=== PATIENT | female | born 1995 | race Caucasian/White ===

== ENCOUNTER 2023-10-27 14:15 | Inpatient (IN) | payer OTHER, SELFPAY ==
[2023-10-27] VITALS (21 sets, daily range): BP systolic 97–143; BP diastolic 55–82; PULSE 81–122; TEMP 36.8–37.3; O2SAT 97–100; BMI 38.2
--- OUTSIDE RECORDS SUMMARY | 2023-10-27 13:47 | XMS RPT_ITS | CCD ---
Author Name Unknown Address [address] [place] [address] Organization [facility] Care Team Providers Care Career Development Director Name Role Phone Adelaide Mcdaniel MD Primary Care Provider [phone] DISTFILIBERTO, ADELAIDE Primary Care Unavailable JAX CANDELARIA Referring Unavailable DISTEL, ADELAIDE Primary Care Unavailable FUNJAX Chavez Referring Unavailable Distel Adelaide MCARTHUR Primary Care Provider DISTFILIBERTO, ADELAIDE Primary Care Unavailable JAX CANDELARIA Attending Unavailable BARI, JAX Cabrera Referring Unavailable DOMINIQUE JOHNSON Attending Unavailable DISTEL, ADELAIDE Primary Care Unavailable FUNK, JAX Cabrera Referring Unavailable DISTEL, ADELAIDE Primary Care Unavailable JAX CANDELARIA Attending Unavailable ARCADIO OWEN Attending Unavailable DISTEL, ADELAIDE Primary Care Unavailable JESSY RAMOS Referring Unavailable DISTEL, ADELAIDE Primary Care Unavailable LINA CAMPOS Attending Unavailable DISTEL, ADELAIDE Primary Care Unavailable RESHMA ODONNELL Attending Unavail able DISTEL, ADELAIDE Primary Care Unavailable FUNJAX Chavez Attending Unavailable DISTEL, ADELAIDE Primary Care Unavailable FUNScott, JAX Cabrera Attending Unavailable DISTEL, ADELAIDE Primary Care Unavailable FUNScott, JAX R Referring Unavailable FUNJAX Chavez Attending Unavailable DISTEL, ADELAIDE Primary Care Unavailable FUNScott, JAX R Referring Unavailable DISTEL, ADELAIDE Primary Care Unavailable FUNK, JAX R Referring Unavailable FUNK, JAX Cabrera Attending Unavailable DISTEL, ADELAIDE Primary Care Unavailable Medications Completed/Discontinued Medications Medication Drug Class(es) Dates Sig (Normalized) Sig (Original) dicyclomine hydrochloride 20 mg oral tablet (6 sources) Anticholinergic Start: 11-07-2021 take 1 tablet by mouth at bedtime dicyclomine (BENTYL) 20 mg tablet Indications: Irritable bowel syndrome with diarrhea TAKE 1 TABLET BY MOUTH BEFORE MEAL(S) AND AT BEDTIME 30 tablet 0 11/07/2021 Active Problems Active Problems Problem Classification Problem Date Documented Da te Episodic/Chronic Abdominal pain (3 sources) Finding of sensation of abdomen; Translations: [Unspecified abdominal pain] Episodic Diabetes or abnormal glucose tolerance complicating ; childbirth; or the puerperium (2 sources) with abnormal glucose tolerance test; Translations: [Abnormal glucose complicating ] Onset: 08-17-2023 08-13-2023 Episodic Headache; including migraine (15 sources) Migraine without aura, not refractory ; Translations: [Chronic migraine without aura, not intractable, without status migrainosus] Onset: 05-20-2021 05-20-2021 Chronic Immunizations and screening for infectious disease (1 source) Vaccination needed; Translations: [Encounter for immunization] 09-24-2023 Episodic Mood disorders (15 sources) Moderate major depression, single episode; Translations: [Major depressive disorder, single episode, moderate] Onset: 01-03-2021 01-03-2021 Chronic Other complications of (1 source) Maternal obesity complicating , childbirth and the puerperium, antepartum; Translations: [Obesity complicating , third trimester] 06-25-2023 Chronic Other complications of (1 source) Obesity; Translations: [Obesity complicating , unspecified trimester] 09-24-2023 Chronic Other complications of (1 source) Uterine size-date discrepancy, third trimester; Translations: [Uterine size-date discrepancy, third trimester] Onset: 10-18-2023 Episodic Other gastrointestinal disorders (3 sources) Diarrhea; Translations: [Diarrhea, unspecified] Episodic Other screening for suspected conditions (not mental disorders or infectious disease) (3 sources) care status; Translations: [Encounter for screening, unspecified] 05-02-2023 Episodic Residual codes; unclassified (2 sources) Gestation period, 12 weeks; Translations: [12 weeks gestation of ] 05-03-2023 Episodic Residual codes; unclassified (1 source) Gestation period, 16 weeks; Translations: [16 weeks gestation of ] 06-04-2023 Episodic Residual codes; unclassified (1 source) Gestation period, 19 weeks; Translations: [19 weeks gestation of ] 06-25-2023 Episodic Residual codes; unclassified (1 source) Gestation period, 20 weeks; Translations: [20 weeks gestation of ] 07-02-2023 Episodic Residual codes; unclassified (1 source) Gestation period, 28 weeks; Translations: [28 weeks gestation of ] 08-27-2023 Episodic Residual codes; unclassified (1 source) Gestation period, 32 weeks; Translations: [32 weeks gestation of ] 09-24-2023 Episodic Past or Other Problems Problem Classification Problem Date Documented Da te Episodic/Chronic Other complications of (9 sources) Rubella non-immune; Translations: [Supervision of other high risk pregnancies, unspecified trimester] Onset: 04-04-2023 04-04-2023 Episodic Other and delivery including normal (16 sources) Normal ; Translations: [Encounter for supervision of normal first , unspecified trimester] Onset: 04-04-2023 04-04-2023 Episodic Residual codes; unclassified (16 sources) Family history of polyp of colon; Translations: [Family history of colonic polyps] Onset: 01-03-2021 01-03-2021 Episodic Results Test Name Value Interpretation Reference Range Facil ity Vital Signs Date Time Vital Sign Value Performing Clinician Melissa peraza 09-24-2023 14:09-0500 Body weight 97.52 kg Reshma Miranda MD Work Phone: [facility] 09-24-2023 14:09-0500 Diastolic blood pressure 74 mm[Hg] Reshma Miranda MD Work Phone: [facility] 09-24-2023 14:09-0500 Systolic blood pressure 120 mm[Hg] Reshma Miranda MD Work Phone: [facility] 08-27-2023 07:57-0500 Body weight 95.3 kg Jax Candelaria MD Work Phone: [facility] 08-27-2023 07:57-0500 Diastolic blood pressure 68 mm[Hg] Jax Candelaria MD Work Phone: [facility] 08-27-2023 07:57-0500 Systolic blood pressure 130 mm[Hg] Jax Candelaria MD Work Phone: [facility] 07-02-2023 13:55-0400 Body height 162.6 cm Jax Candelaria MD Work Phone: [facility] 07-02-2023 13:55-0400 Body weight 89.81 kg Jax Candelaria MD Work Phone: [facility] 07-02-2023 13:55-0400 Diastolic blood pressure 62 mm[Hg] Jax Candelaria MD Work Phone: [facility] 07-02-2023 13:55-0400 Systolic blood pressure 114 mm[Hg] Jax Candelaria MD Work Phone: [facility] 06-04-2023 16:29-0400 Body weight 87.09 kg Jax Candelaria MD Work Phone: [facility] 06-04-2023 16:29-0400 Diastolic blood pressure 82 mm[Hg] Jax Candelaria MD Work Phone: [facility] 06-04-2023 16:29-0400 Systolic blood pressure 120 mm[Hg] Jax Candelaria MD Work Phone: [facility] 05-07-2023 16:28-0400 Body weight 85.28 kg Jax Candelaria MD Work Phone: [facility] 05-07-2023 16:28-0400 Diastolic blood pressure 80 mm[Hg] Jax Candelaria MD Work Phone: [facility] 05-07-2023 16:28-0400 Systolic blood pressure 114 mm[Hg] Jax Candelaria MD Work Phone: [facility] 05-02-2023 09:52-0400 Body weight 85.73 kg Dominique Johnson MD Work Phone: [facility] 07-21-2022 09:28-0400 Diastolic blood pressure 77 mm[Hg] Michael Lovell MD Work Phone: [facility] 07-21-2022 09:28-0400 Heart rate 56 /min Michael Lovell MD Work Phone: [facility] 07-21-2022 09:28-0400 Respiratory rate 17 /min Michael Lovell MD Work Phone: [facility] 07-21-2022 09:28-0400 SaO2% (BldA) [Mass fraction] 99 % Michael Lovell MD Work Phone: [facility] 07-21-2022 09:28-0400 Systolic blood pressure 117 mm[Hg] Michael Lovell MD Work Phone: [facility] 07-21-2022 08:56-0400 Body temperature 96.8 [degF] Michael Lovell MD Work Phone: [facility] 07-21-2022 07:10-0400 Body height 165.1 cm Michael Lovell MD Work Phone: [facility] 07-21-2022 07:10-0400 Body weight 85.28 kg Michael Lovell MD Work Phone: [facility] 02-09-2022 07:18-0400 Body height 165.1 cm Michael Lovell MD Work Phone: [facility] 02-09-2022 07:18-0400 Body temperature 97.3 [degF] Michael Lovell MD Work Phone: [facility] 02-09-2022 07:18-0400 Body weight 85.28 kg Michael Lovell MD Work Phone: [facility] 02-09-2022 07:18-0400 Diastolic blood pressure 84 mm[Hg] Michael Lovell MD Work Phone: [facility] 02-09-2022 07:18-0400 Heart rate 106 /min Michael Lovell MD Work Phone: [facility] 02-09-2022 07:18-0400 SaO2% (BldA) [Mass fraction] 95 % Michael Lovell MD Work Phone: [facility] 02-09-2022 07:18-0400 Systolic blood pressure 146 mm[Hg] Michael Lovell MD Work Phone: [facility] Encounters Encounter Date Encounter Type Care Provider Facility Start: 10-19-2023 End: 10-19-2023 ambulatory ARCADIO OWEN Facility:[facility] Start: 10-18-2023 End: 10-18-2023 ambulatory JESSY RAMOS Facility:[facility] Start: 10-12-2023 End: 10-12-2023 ambulatory LINA CAMPOS Facility:[facility] Start: 09-24-2023 End: 09-24-2023 ambulatory RESHMA MIRANDA Facility:[facility] Start: 09-24-2023 End: 09-24-2023 Patient encounter procedure Reshma Miranda MD Work Phone: OB/Gynecology Procedures Date Procedure Procedure Detail Performing Clinician Start: 09-24-2023 RSV VACCINE, BIVALEN T (ABRYSVO) Reshma Miranda MD Work Phone: Start: 09-24-2023 URINE OB DIP B/O Reshma Miranda MD Work Phone: Start: 08-27-2023 URINE OB DIP B/O Kate Candelaria MD Work Phone: Start: 07-02-2023 URINE OB DIP B/O Kate Candelaria MD Work Phone: Start: 06-18-2023 Us preg uterus after 1st trimest 1/ gestation Jax Candelaria MD Work Phone: Start: 05-07-2023 URINE OB DIP B/O Kate Candelaria MD Work Phone: Start: 05-02-2023 Us nuchal translucency 1st gestation Jax Candelaria MD Work Phone: Start: 04-03-2023 Antibody screen ADELAIDE D ISTEL Plan of Treatment Date Care Activity Detail Author Start: 09-24-2033 Urine microalbumin profile DTaP,Tdap,Td Vaccine (2 - Td or Tdap) [facility] Start: 02-18-2026 PAP TESTING PAP TESTING [facility] Start: 02-19-2024 PAP TESTING PAP TESTING [facility] Start: 08-13-2023 End: 11-12-2023 GEST GLUC PAOLO, 3-HR, 100 GM, FASTING GEST GLUC PAOLO, 3-HR, 100 GM, FASTING Lab Routine Abnormal glucose tolerance test (GTT) during , antepartum Expected: 08/13/2023, Expires: 11/12/2023 [facility] Work Phone: Immunizations Immunization Date Immunization Notes Care Provider Alexis burgos 09-24-2023 respiratory syncytia l virus (RSV) vaccine, bivalent (ABRYSVO) Reshma Miranda MD Work Phone: [facility] 09-24-2023 tetanus toxoid, redu radha diphtheria toxoid, and acellular pertussis vaccine, adsorbed Reshma Miranda MD Work Phone: [facility] 09-11-2020 influenza virus vacc ine, unspecified formulation Jax Candelaria MD Work Phone: [facility] Payers Date Payer Category Payer Private Health Insurance [employer] OAP [id number] 2020-Present [phone] [address] [place] [address] Open Access [id number] 2020 Private Health Insurance [employer] OAP [id number] 2020-Present [phone] [address] [place] [address] Open Access [id number] 2020 Private Health Insurance [id number] Social History Date Type Detail Facility Start: 01-03-2021 End: 06-04-2023 Tobacco smoking status NHIS Never smoked tobacco [facility] Start: 01-03-2021 End: 06-04-2023 Tobacco use and exposure Smokeless tobacco non-user [facility] Start: 02-09-2022 End: 08-27-2023 Alcohol intake Current drinker of alcohol (finding) [facility] Start: 02-09-2022 End: 04-03-2023 Alcohol intake [facility] Start: 01-01-2021 History SDOH Alcohol Frequency 3 [facility] Start: 01-01-2021 History SDOH Alcohol Std Drinks 1 [facility] Start: 01-01-2021 History SDOH Social Connections Phone 5 [facility] Start: 01-01-2021 History SDOH Social Connections Get Together 2 [facility] Start: 01-01-2021 History SDOH Social Connections Living 8 [facility] Start: 01-01-2021 Education 17 [facility] Start: 1995 Sex Assigned At Female C [facility] Start: 01-30-2022 End: 08-18-2022 Exposure to SARS-CoV-2 (event) Not sure [facility] Start: 02-20-2023 [facility] Start: 01-01-2021 End: 04-03-2023 Social connection and isolation panel [facility] Do you belong to any clubs or organizations such as muslim groups, unions, fraternal or athletic groups, or school groups? No [facility] Are you now , , , , never or living with a partner? Living with partner [facility] How often to you hav e a drink containing alcohol? 2-4 times a month [facility] How many standard dr inks containing alcohol do you have on a typical day? 1 or 2 [facility] How often do you hav e 6 or more drinks on 1 occasion? Never [facility] How hard is it for y ou to pay for the very basics like food, housing, medical care, and heating Not hard at all [facility] Do you feel stress - tense, restless, nervous, or anxious, or unable to sleep at night because your mind is troubled all the time - these days [OSQ] Only a little [facility] (I/We) worried alessandro er (my/our) food would run out before (I/we) got money to buy more. Never true [facility] Start: 12-31-2020 Gender identity Identifies as female gender (finding) [facility] Start: 12-31-2020 Sexual orientation Heterosexual (fabio ro) [facility] NEGATED: Highlighted rowStart: TATUMF History of tobacco use Passive smoker [facility] Goals Date Patient Goal Desired Activity /State Personal health goal Clinical Notes 02-09-2022 to 09-24-2023 Kanchan Ramesh Ma - 09/24/2023 2:30 PM ESTPrenatal Quick Notes - Reshma Odonnell MD - 09/24/2023 2:26 PM ESTPatient InstructionsIsabela Almonte Ma - 08/27/2023 7:55 AM ESTPatient Instructions Note Date & Type Note Facility 09-24-2023 Note HNO ID: [id number] Author: Kanchan Ramesh Ma Service: ? Author Type: ? Type: Progress Notes Filed: 09/24/2023 2:42 PM Note Text: Patient identified by name and date of . Veronica Harrison presents today for a vaccination of Tdap. Patient denies an allergy to latex: yes Patient denies a severe (life-threatening) allergy to a previous dose of Tdap, DTP, DTaP, DT or Td vaccine. Yes Patient denies history of epilepsy or neurological problems: Yes Patient is afebrile and denies being moderately or severely ill: Yes Patient denies history of Guillain-[place] Syndrome (a severe paralytic illness): Yes Tdap Adacel injection was given without incident. See immunizations for details of immunizations administered today. VIS sheet provided: Yes Provider Dr Miranda was present in office at time of injection. Kanchan Ramesh Ma [facility] 09-24-2023 History of Present illness Narrative Patient identified by name and date of . Veronica Harrison presents today for a vaccination of Tdap. Patient denies an allergy to latex: yes Patient denies a severe (life-threatening) allergy to a previous dose of Tdap, DTP, DTaP, DT or Td vaccine. Yes Patient denies history of epilepsy or neurological problems: Yes Patient is afebrile and denies being moderately or severely ill: Yes Patient denies history of Guillain-[place] Syndrome (a severe paralytic illness): Yes Tdap Adacel injection was given without incident. See immunizations for details of immunizations administered today. VIS sheet provided: Yes Provider Dr Miranda was present in office at time of injection. Kanchan Ramesh Ma documented in this encounter [facility] 09-24-2023 Miscellaneous Notes DM- transferring from [place] to [place]- wants to deliver at [facility]. Pt doing well today. Denies Vaginal Bleeding, Leaking fluid, or contractions. Pt reports good movement. Failed 1hr passed 3hr hr. Never started ASA. RSV and tdap vaccine today. RTO 2 wk. Kick counts reviewed. Reshma Eason MD documented in this encounter [facility] 09-24-2023 Instructions Wendy Lee Ma - 09/24/2023 2:08 PM EST SEQUENTIAL SCREENINGS The [facility] offers sequential screenings for women who are interested in screenings for chromosomal abnormalities and certain defects during a . The sequential screen combines ultrasound and blood tests to determine the risk of chromosomal abnormalities, including Down's Syndrome (Trisomy 21) and Trisomy 18, as well as open neural tube defects including spina bifida. Ultrasound examination is performed between 11 weeks and 13 weeks gestational age. Blood tests are drawn after the ultrasound and again later in the between 15 and 21 weeks gestational age. Please let your physician know if you are interested in this testing. It will require an appointment with our retail pharmacy technician. This is not an ultrasound performed by a physician in our office during a routine visit. SIGNS AND SYMPTOMS OF LABOR 1. Contractions every 10 minutes or more often 2. Clear, pink, or brownish fluid (water) leaking from vagina 3. Feeling that baby is pushing down, pressure 4. Low, dull backache 5. Cramps that feel like a period 6. Cramps with or without diarrhea If you notice any of the above symptoms, contact our office at [phone] and ask to speak with a nurse. After hours, you can call doctors registry at [phone] OR call [facility] at [phone] and ask to have the doctor salesperson flowers paged. If you consider this an emergency, dial 9--4 or go to your nearest emergency department. NEED HELP? Are you dealing with a violent or abusive relationship? Are you a victim of rape or sexual assult? Call [facility] ([place]) 24 hour Crisis Hotline: 674.119.5598 or 088-055-4624. MANUAL Your Guide to a Healthy manual is now on-line. Visit [email or web address] ncyGuide to download your free copy documented in this encounter [facility] 08-27-2023 Miscellaneous Notes W/O complaint, No LOF, No Ctx's, No Vag bleed. Harlan Candelaria MD documented in this encounter [facility] 08-27-2023 Nurse Note Movement? Active baby Vaginal Bleeding: NO Vaginal fluid leakage of fluid: NO Contractions: no contractions documented in this encounter [facility] 08-13-2023 Miscellaneous Notes Patient called and aware of 3 hour. Phone number given Lubna Khoury LPN Please call patient. Recent 1 hour returns at 137, order for 3-hour OGTT is now placed. documented in this encounter [facility] 07-02-2023 Miscellaneous Notes Next - 1 hour, W/O complaint, No LOF, No Ctx's, No Vag bleed. Harlan Candelaria MD documented in this encounter [facility] 07-02-2023 Nurse Note Movement? No movement Vaginal Bleeding: NO Vaginal fluid leakage of fluid: NO Contractions: no contractions documented in this encounter [facility] 06-25-2023 Note HNO ID: [id number] Author: Ghazala Cullen MD Service: ? Author Type: Physician Type: Progress Notes Filed: 06/25/2023 8:12 AM Note Text: Patient here for routine anatomy scan. See ultrasound report for details. OBGYN [facility] 06-25-2023 History of Present illness Narrative Patient here for routine anatomy scan. See ultrasound report for details. OBGYN [facility] documented in this encounter [facility] 06-04-2023 Miscellaneous Notes Declines NIPT, W/O complaint, No LOF, No Ctx's, No Vag bleed. Harlan Candelaria MD documented in this encounter [facility] 06-04-2023 Nurse Note Movement? Too early Vaginal Bleeding: NO Vaginal fluid leakage of fluid: NO Contractions: no contractions documented in this encounter [facility] 05-07-2023 Miscellaneous Notes W/O complaint, No LOF, No Ctx's, No Vag bleed. Harlan Candelaria MD documented in this encounter [facility] 05-07-2023 Nurse Note Movement? Too early Vaginal Bleeding: NO Vaginal fluid leakage of fluid: NO Contractions: no contractions documented in this encounter [facility] 05-03-2023 Note HNO ID: [id number] Author: Dominique Johnson MD Service: ? Author Type: Physician Type: Progress Notes Filed: 05/03/2023 1:29 PM Note Text: Patient here for First Trimester Screening. See ultrasound report for details. Options for genetic screening and diagnosis discussed with the patient. Patient opts for fNIPT. Limitations of screening tests discussed with the patient. Dominique Johnson MD [facility] 05-03-2023 History of Present illness Narrative Patient here for First Trimester Screening. See ultrasound report for details. Options for genetic screening and diagnosis discussed with the patient. Patient opts for fNIPT. Limitations of screening tests discussed with the patient. Dominique Johnson MD documented in this encounter [facility] 04-03-2023 Note HNO ID: [id number] Author: Jax Candelaria MD Service: ? Author Type: Physician Type: Progress Notes Filed: 04/03/2023 1:47 PM Note Text: INITIAL OB ASSESSMENT OB Provider: Jax Candelaria MD HPI:Veronica Harrison a 27 year old White female here to establish Obstetrical Care. Patient's last menstrual period was 02/06/2023 (exact date). from OB Dating Form. 8 0/7 weeks with an EDC of Estimated Date of Delivery: 11/13/23 Complaints: None OB History T0 L0 SAB0 IAB0 Ectopic0 Multiple0 Live Births0 PAST MEDICAL HISTORY Diagnosis Date Depression Generalized anxiety disorder Intractable migraine without aura and without status migrainosus PAST SURGICAL HISTORY Procedure Laterality Date COLONOSCOPY SCREENING 07/21/2022 Dr. Nas EXTRACTION ERUPTED TOOTH/EXR KNEE SURGERY HX Right 2016 ACL reconstruction Current Outpatient Medications on File Prior to Visit Medication Sig vit no.124/iron/folic ( VITAMIN ORAL) Take by mouth. No current facility-administered medications on file prior to visit. ALLERGIES No Known Allergies 04/03/23 0955 BP: 128/80 Weight: 189 lb (85.7 kg) GENERAL: pleasant female in no apparent distress DERMATOLOGY: Normal, without lesions, non-icteric, and non-hirsute NECK: Supple, full range of motion, no adenopathy, and thyroid normal CHEST: Clear to auscultation, Normal inspiratory effort, Regular rate and rhythm, and No murmurs, clicks, rubs or gallops BREAST: soft, non-tender, symmetric, no dominant mass, normal nipple-areolar complex, no lymphadenopathy, and no nipple discharge ABDOMEN: soft, non-tender, no masses, and no hepatosplenomegaly NEURO: alert and oriented x3,exam grossly non-focal PELVIS: External genitalia normal without lesions. , Perineal body intact. , No vaginal or cervical lesions. , Cervix closed. , Uterus 8 week size. , No adnexal masses or tenderness. ASSESSMENT: 27 year old at 8 0/7 weeks PLAN: Routine care. Follow up in 4 weeks or sooner prn. Jax Candelaria MD [facility] 08-18-2022 History of Present illness Narrative FOLLOW UP VISIT - ENDOSCOPY NAME: Veronica Harrison [facility] NO.: [id number] DATE OF SERVICE: 08/18/2022 : 1995 REFERRING PHYSICIAN: Adelaide Mcdaniel MD Veronica is a patient I am following for diarrhea. The patient is a 26 year old female referred for endoscopy. Veronica notes the following GI complaints: Veronica notes abdominal pain. The pain occurs in the following locations: Relatively diffuse throughout her abdomen. She notes that this pain is episodic and paroxysmal. She denies that it radiates to her back shoulders or other areas. She has had evaluation and has no true gallbladder symptoms. She denies that any specific foods tend to set this off. Sometimes this happens after eating other times not during eating. It does seem to be more related to stress. She has been told in the past that she has irritable bowel syndrome. She was given Bentyl. This does not improve her symptoms.. Veronica notes occasional diarrhea. Veronica notes occasional constipation. Veronica notes these alternating bowel habits. Veronica denies melena. Veronica denies bright red blood per rectum. Veronica denies hemorrhoids. The patient does note reflux. She denies dysphagia. She notes no other upper GI complaints. She notes that her grandfather had colon cancer and both parents have a history of colon polyps Veronica has not undergone prior endoscopy. Given a likely diagnosis of the bowel syndrome the patient would like to have endoscopy form to assure there is not some other etiology for her symptoms. I performed colonoscopy on July 21, 2022. The patient was found to have: Impression: - The examined portion of the ileum was normal. Biopsied. - The entire examined colon is normal. Biopsied. - One diminutive polyp in the rectum, removed with a cold biopsy forceps. Resected and retrieved. - The distal rectum and anal verge are normal on retroflexion view. . Pathology demonstrated: FINAL DIAGNOSIS A. Terminal ileum, biopsy: - Small bowel mucosa with no diagnostic abnormalities. B. Colon, ascending, biopsy: - Colonic mucosa with no diagnostic abnormalities. C. Colon, descending, biopsy: - Colonic mucosa with no diagnostic abnormalities. D. Colon, rectal polyp, biopsy: - Hyperplastic polyp. The patient notes continued complaints of diarrhea alternating with constipation since the procedure. The patient feels these are more likely to occur during periods of stress. VITALS: Last menstrual period 07/19/2022. On examination, the abdomen is benign. Assessment IMPRESSION: Unremarkable colonoscopy hyperplastic polyp PLAN: If the patient notes any problems or changes in bowel function, the patient should contact me immediately. Otherwise I recommend follow up endoscopy as needed. You were found to have a hyperplastic colon polyp. I recommend you undergo repeat endoscopy as needed. If you note bleeding, change in bowel habits, or other suspicious colon related symptoms before that time, those symptoms should be evaluated as necessary. I would recommend fiber supplements see if this mitigates her constipation diarrhea episodes and/or a higher fiber diet. If she is has consistent issues with diarrhea abdominal cramping with anxiety she should see her primary care physician to consider addressing that issue. If you have any difficulties or concerns, you should contact our office immediately. Diagnoses: (R19.7) Diarrhea, unspecified type (primary encounter diagnosis) (R10.9) Cramp, abdominal Return to Clinic: The patient is instructed to follow-up with me as needed. Michael Lovell MD documented in this encounter [facility] 08-07-2022 Miscellaneous Notes Per the request of Dr. Lovell called patient to set up follow up appt after her colonoscopy 07/21 documented in this encounter [facility] 07-21-2022 Nurse Note Other: at bedside talking with pt, pt passing flatus. VSS documented in this encounter [facility] 07-21-2022 History and physical note UPDATED PROCEDURAL SEDATION HISTORY AND PHYSICAL EXAMINATION SERVICE DATE: 07/21/2022 SERVICE TIME: 8:16 AM PHYSICAL EXAM MUST BE COMPLETED ON ADMISSION PROCEDURE: Procedure Indications: The History and Physical (completed in the past 30 days) has been reviewed and the patient has been examined. The contents accurately reflect the patient's condition with the following additions or revisions since the H&P was completed. ASA Class: ASA Class:: Patient with mild systemic disease Examination indicates no changes. AIRWAY: Airway Visualization of Uvula: Yes Mouth opening greater than 2 fingerbreadths: Yes Neck Full Range of Motion: Yes LUNGS: Lungs clear to auscultation CARDIAC: Regular rhythm,Regular rate Provisional Diagnosis/Treatment Plan: IBS, diarrhea, family history of colon polyps - colonoscopy (insurance refused to cover EGD) SEDATION GOAL: Moderate This H&P can be found in the attached. SIGNATURE: Michael Lovell MD PATIENT NAME: Veronica Harrison DATE: July 21, 2022 TIME: 8:16 AM Source Note - Michael Lovell MD - 07/21/2022 8:20 AM EDT Images from the original note were not included. HISTORY AND PHYSICAL Veronica Harrison 1995 REFERRING PHYSICIAN: Self CHIEF COMPLAINT: Consult (IBS with Diarrhea) HPI: The patient is a 26 year old female referred for endoscopy. Veronica notes the following GI complaints: Veronica notes abdominal pain. The pain occurs in the following locations: Relatively diffuse throughout her abdomen. She notes that this pain is episodic and paroxysmal. She denies that it radiates to her back shoulders or other areas. She has had evaluation and has no true gallbladder symptoms. She denies that any specific foods tend to set this off. Sometimes this happens after eating other times not during eating. It does seem to be more related to stress. She has been told in the past that she has irritable bowel syndrome. She was given Bentyl. This does not improve her symptoms.. Veronica notes occasional diarrhea. Veronica notes occasional constipation. Veronica notes these alternating bowel habits. Veronica denies melena. Veronica denies bright red blood per rectum. Veronica denies hemorrhoids. The patient does note reflux. She denies dysphagia. She notes no other upper GI complaints. She notes that her grandfather had colon cancer and both parents have a history of colon polyps Veronica has not undergone prior endoscopy. Given a likely diagnosis of the bowel syndrome the patient would like to have endoscopy form to assure there is not some other etiology for her symptoms. The patient is being seen by me today at the request of Dr. Adelaide Mcdaniel MD for my opinion and advice regarding abdominal cramping, alternating diarrhea and constipation. PAST MEDICAL HISTORY PAST MEDICAL HISTORY Diagnosis Date Depression Generalized anxiety disorder Intractable migraine without aura and without status migrainosus PAST SURGICAL HISTORY PAST SURGICAL HISTORY Procedure Laterality Date EXTRACTION ERUPTED TOOTH/EXR KNEE SURGERY HX Right 2016 ACL reconstruction CURRENT MEDICATIONS Current Outpatient Medications Medication Sig peg 3350-Electrolytes (GOLYTELY) 236-22.74-6.74 -5.86 gram suspension Refer to printed prep instructions from your provider. dicyclomine (BENTYL) 20 mg tablet TAKE 1 TABLET BY MOUTH BEFORE MEAL(S) AND AT BEDTIME sertraline (ZOLOFT) 50 mg tablet Take 1 tablet by mouth once daily. No current facility-administered medications for this visit. ALLERGIES: Patient has no known allergies. PERSONAL HISTORY: SOCIAL HISTORY Social History Tobacco Use Smoking status: Never Smoker Smokeless tobacco: Never Used Substance Use Topics Alcohol use: Yes Alcohol/week: 1.0 standard drink Types: 1 Cans of Beer (12oz) per week Drug use: Never FAMILY HISTORY: FAMILY HISTORY FAMILY HISTORY Problem Relation Age of Onset Colon Polyps Mother pre-cancer Colon Polyps Father pre-cancer Colon Cancer Other paternal great grandmother Diabetes Maternal Grandfather REVIEW OF SYMPTOMS: The review of systems data was entered by the nurse and reviewed by tn Nursing Notes: Jayla Ahn 02/09/2022 7:22 AM Signed REVIEW OF SYSTEMS: General: The patient denies fatigue, denies weight loss, NOTES weight gain, denies feeling hot, and denies feelings of cold. Eyes: The patient denies glaucoma, denies eye injury/surgery, does not wear glasses or contacts. Ear/Nose/Throat: The patient NOTES allergies, denies hayfever, denies ear infections, and denies bloody noses. Cardiovascular: The patient denies chest pain, denies heart disease, denies high blood pressure,denies cardiac stent, denies prior heart attack, denies irregular heart beat, denies high cholesterol, denies poor circulation, denies heart failure, other cardiac issues, denies claudication, denies cold feet, denies peripheral arterial stent. Respiratory: The patient denies tuberculosis, denies pneumonia, denies frequent cough, denies pulmonary embolism, denies shortness of breath, and denies coughing up blood. Gastrointestinal: The patient denies difficulty swallowing, NOTES acid reflux, denies ulcers, denies vomiting, denies jaundice/hepatitis, denies gallbladder problems, denies black or tarry stools, denies hemorrhoids, denies bleeding from rectum, denies diverticulitis, NOTES constipation, NOTES diarrhea, denies loss of stool control, and denies hernias. Kidney/Bladder: The patient denies kidney stones, denies urine infections, and denies bloody urine. Skin: The patient denies a history of skin cancer, denies bleeding/changing moles, and denies a history of skin rash. Neurologic: The patient denies a history of epilepsy/convulsions, NOTES headaches, denies head/spinal injuries, and denies stroke/TIA. Psychiatric: The patient denies psychiatric medications, NOTES depression, and denies voices, denies substance abuse. Endocrine: The patient denies thyroid disorders, denies diabetes, and denies hormonal problems. Hematologic: The patient denies a history of bruising, denies bleeding, and denies anemia, denies blood clots. Infections: The patient denies a history of measles and mumps, denies rheumatic fever, and denies sexually transmitted diseases. Musculoskeletal: The patient denies back pain/injury, denies back problems, denies sciatica, denies knee/foot trouble, denies arthritis, or denies gout. When was patient's last Mammogram screening? N/A Last Colonoscopy: None Jayla Ahn PHYSICAL EXAMINATION: General: The patient is 26 year old female, well nourished, well hydrated in no acute distress. The patient is oriented to time, place, and person. VITALS: Blood pressure 146/84, pulse 106, temperature 36.3 C (97.3 F), height 165.1 cm (5' 5 ), weight 85.3 kg (188 lb), last menstrual period 02/04/2021, SpO2 95 %. Body mass index is 31.28 kg/m . HEENT: Normal cephalic, ataumatic, pupils are equally round, sclera are anicteric, mucous membranes are moist, oropharynx is clear. Neck has no masses, asymmetry or lymphadenopathy. Thyroid is unremarkable. Respiratory: Clear to auscultation and percussion. Normal respiratory excursion and pattern. Cardiac: Examination is regular rate and rhythm. Abdominal exam: Soft, nontender, with no palpable masses. No hepatosplenomegaly. No palpable hernias. Rectal exam: exam deferred Extremities: no clubbing, cyanosis or edema. No adenopathy. Other: LABORATORY VALUES: As Noted RADIOLOGIC STUDIES: As Noted Assessment IMPRESSION: [place] cramping, alternating constipation diarrhea, likely IBS, rule out other etiologies PLAN: I plan to perform upper and lower endoscopy. We discussed the risks and benefits of the planned endoscopy. I have informed the patient that complications can occur including failure to complete the endoscopy and perforation. The patient had the opportunity to ask questions concerning the planned endoscopy. My staff has also explained the procedure to the patient in understandable terms and has given the patient printed material concerning the procedure. The patient freely consents to surgery. I plan to use golytely bowel preparation for endoscopy I plan for monitored anesthetic care. Diagnoses: (R19.7) Diarrhea, unspecified type (primary encounter diagnosis) (R10.9) Cramp, abdominal A letter was sent to Dr. Adelaide Mcdaniel MD indicating the above finding for this patient. Return to Clinic: The patient is instructed to follow-up with me after the testing has been completed. Michael Lovell MD Images from the original note were not included. HISTORY AND PHYSICAL Veronica Harrison 1995 REFERRING PHYSICIAN: Self CHIEF COMPLAINT: Consult (IBS with Diarrhea) HPI: The patient is a 26 year old female referred for endoscopy. Veronica notes the following GI complaints: Veronica notes abdominal pain. The pain occurs in the following locations: Relatively diffuse throughout her abdomen. She notes that this pain is episodic and paroxysmal. She denies that it radiates to her back shoulders or other areas. She has had evaluation and has no true gallbladder symptoms. She denies that any specific foods tend to set this off. Sometimes this happens after eating other times not during eating. It does seem to be more related to stress. She has been told in the past that she has irritable bowel syndrome. She was given Bentyl. This does not improve her symptoms.. Veronica notes occasional diarrhea. Veronica notes occasional constipation. Veronica notes these alternating bowel habits. Veronica denies melena. Veronica denies bright red blood per rectum. Veronica denies hemorrhoids. The patient does note reflux. She denies dysphagia. She notes no other upper GI complaints. She notes that her grandfather had colon cancer and both parents have a history of colon polyps Veronica has not undergone prior endoscopy. Given a likely diagnosis of the bowel syndrome the patient would like to have endoscopy form to assure there is not some other etiology for her symptoms. The patient is being seen by me today at the request of Dr. Adelaide Mcdaniel MD for my opinion and advice regarding abdominal cramping, alternating diarrhea and constipation. PAST MEDICAL HISTORY PAST MEDICAL HISTORY Diagnosis Date Depression Generalized anxiety disorder Intractable migraine without aura and without status migrainosus PAST SURGICAL HISTORY PAST SURGICAL HISTORY Procedure Laterality Date EXTRACTION ERUPTED TOOTH/EXR KNEE SURGERY HX Right 2016 ACL reconstruction CURRENT MEDICATIONS Current Outpatient Medications Medication Sig peg 3350-Electrolytes (GOLYTELY) 236-22.74-6.74 -5.86 gram suspension Refer to printed prep instructions from your provider. dicyclomine (BENTYL) 20 mg tablet TAKE 1 TABLET BY MOUTH BEFORE MEAL(S) AND AT BEDTIME sertraline (ZOLOFT) 50 mg tablet Take 1 tablet by mouth once daily. No current facility-administered medications for this visit. ALLERGIES: Patient has no known allergies. PERSONAL HISTORY: SOCIAL HISTORY Social History Tobacco Use Smoking status: Never Smoker Smokeless tobacco: Never Used Substance Use Topics Alcohol use: Yes Alcohol/week: 1.0 standard drink Types: 1 Cans of Beer (12oz) per week Drug use: Never FAMILY HISTORY: FAMILY HISTORY FAMILY HISTORY Problem Relation Age of Onset Colon Polyps Mother pre-cancer Colon Polyps Father pre-cancer Colon Cancer Other paternal great grandmother Diabetes Maternal Grandfather REVIEW OF SYMPTOMS: The review of systems data was entered by the nurse and reviewed by tn Nursing Notes: Jayla Ahn 02/09/2022 7:22 AM Signed REVIEW OF SYSTEMS: General: The patient denies fatigue, denies weight loss, NOTES weight gain, denies feeling hot, and denies feelings of cold. Eyes: The patient denies glaucoma, denies eye injury/surgery, does not wear glasses or contacts. Ear/Nose/Throat: The patient NOTES allergies, denies hayfever, denies ear infections, and denies bloody noses. Cardiovascular: The patient denies chest pain, denies heart disease, denies high blood pressure,denies cardiac stent, denies prior heart attack, denies irregular heart beat, denies high cholesterol, denies poor circulation, denies heart failure, other cardiac issues, denies claudication, denies cold feet, denies peripheral arterial stent. Respiratory: The patient denies tuberculosis, denies pneumonia, denies frequent cough, denies pulmonary embolism, denies shortness of breath, and denies coughing up blood. Gastrointestinal: The patient denies difficulty swallowing, NOTES acid reflux, denies ulcers, denies vomiting, denies jaundice/hepatitis, denies gallbladder problems, denies black or tarry stools, denies hemorrhoids, denies bleeding from rectum, denies diverticulitis, NOTES constipation, NOTES diarrhea, denies loss of stool control, and denies hernias. Kidney/Bladder: The patient denies kidney stones, denies urine infections, and denies bloody urine. Skin: The patient denies a history of skin cancer, denies bleeding/changing moles, and denies a history of skin rash. Neurologic: The patient denies a history of epilepsy/convulsions, NOTES headaches, denies head/spinal injuries, and denies stroke/TIA. Psychiatric: The patient denies psychiatric medications, NOTES depression, and denies voices, denies substance abuse. Endocrine: The patient denies thyroid disorders, denies diabetes, and denies hormonal problems. Hematologic: The patient denies a history of bruising, denies bleeding, and denies anemia, denies blood clots. Infections: The patient denies a history of measles and mumps, denies rheumatic fever, and denies sexually transmitted diseases. Musculoskeletal: The patient denies back pain/injury, denies back problems, denies sciatica, denies knee/foot trouble, denies arthritis, or denies gout. When was patient's last Mammogram screening? N/A Last Colonoscopy: None Jayla Ahn PHYSICAL EXAMINATION: General: The patient is 26 year old female, well nourished, well hydrated in no acute distress. The patient is oriented to time, place, and person. VITALS: Blood pressure 146/84, pulse 106, temperature 36.3 C (97.3 F), height 165.1 cm (5' 5 ), weight 85.3 kg (188 lb), last menstrual period 02/04/2021, SpO2 95 %. Body mass index is 31.28 kg/m . HEENT: Normal cephalic, ataumatic, pupils are equally round, sclera are anicteric, mucous membranes are moist, oropharynx is clear. Neck has no masses, asymmetry or lymphadenopathy. Thyroid is unremarkable. Respiratory: Clear to auscultation and percussion. Normal respiratory excursion and pattern. Cardiac: Examination is regular rate and rhythm. Abdominal exam: Soft, nontender, with no palpable masses. No hepatosplenomegaly. No palpable hernias. Rectal exam: exam deferred Extremities: no clubbing, cyanosis or edema. No adenopathy. Other: LABORATORY VALUES: As Noted RADIOLOGIC STUDIES: As Noted Assessment IMPRESSION: [place] cramping, alternating constipation diarrhea, likely IBS, rule out other etiologies PLAN: I plan to perform upper and lower endoscopy. We discussed the risks and benefits of the planned endoscopy. I have informed the patient that complications can occur including failure to complete the endoscopy and perforation. The patient had the opportunity to ask questions concerning the planned endoscopy. My staff has also explained the procedure to the patient in understandable terms and has given the patient printed material concerning the procedure. The patient freely consents to surgery. I plan to use golytely bowel preparation for endoscopy I plan for monitored anesthetic care. Diagnoses: (R19.7) Diarrhea, unspecified type (primary encounter diagnosis) (R10.9) Cramp, abdominal A letter was sent to Dr. Adelaide Mcdaniel MD indicating the above finding for this patient. Return to Clinic: The patient is instructed to follow-up with me after the testing has been completed. Michael Lovell MD documented in this encounter [facility] 07-20-2022 Miscellaneous Notes Patient was transferred to [place] in regards to colonoscopy and EGD in [place] with [facility]. Patient had PSS cancel EGD but the entire procedure was taken off by mistake. Informed patient to still come in at normal time for her colonoscopy and EGD will be taken off. Patient is aware. Added colonoscopy back to the board and cancelled EGD order as patient now only wants colonoscopy to be completed due to financial with EGD [facility] Patient called to check on the status of the peer to peer review for her endoscopy. I informed her that per the referral that the procedure has been denied. Patient is asking to be contacted to be advised on plan of care and to confirm if colonoscopy is still scheduled. documented in this encounter [facility] 05-03-2022 Miscellaneous Notes Patient called back and denied sooner procedure date of 05/19. Per patient will stick with 07/21 date [facility] 1st attempt to reach patient to accept sooner procedure date 05/19 [facility] to call me directly ~ 05/03 1st attempt to reach patient to accept sooner procedure date. [place] to call me directly AT [phone] [facility] 08-14-2022 COLON EGD BOWEN documented in this encounter [facility] 02-09-2022 History of Present illness Narrative Patient scheduled 08/14 [facility] HISTORY AND PHYSICAL Veronica Harrison 1995 REFERRING PHYSICIAN: Self CHIEF COMPLAINT: Consult (IBS with Diarrhea) HPI: The patient is a 26 year old female referred for endoscopy. Veronica notes the following GI complaints: Veronica notes abdominal pain. The pain occurs in the following locations: Relatively diffuse throughout her abdomen. She notes that this pain is episodic and paroxysmal. She denies that it radiates to her back shoulders or other areas. She has had evaluation and has no true gallbladder symptoms. She denies that any specific foods tend to set this off. Sometimes this happens after eating other times not during eating. It does seem to be more related to stress. She has been told in the past that she has irritable bowel syndrome. She was given Bentyl. This does not improve her symptoms.. Veronica notes occasional diarrhea. Veronica notes occasional constipation. Veronica notes these alternating bowel habits. Veronica denies melena. Veronica denies bright red blood per rectum. Veronica denies hemorrhoids. The patient does note reflux. She denies dysphagia. She notes no other upper GI complaints. She notes that her grandfather had colon cancer and both parents have a history of colon polyps Veronica has not undergone prior endoscopy. Given a likely diagnosis of the bowel syndrome the patient would like to have endoscopy form to assure there is not some other etiology for her symptoms. The patient is being seen by me today at the request of Dr. Adelaide Mcdaniel MD for my opinion and advice regarding abdominal cramping, alternating diarrhea and constipation. PAST MEDICAL HISTORY Diagnosis Date Depression Generalized anxiety disorder Intractable migraine without aura and without status migrainosus PAST SURGICAL HISTORY Procedure Laterality Date EXTRACTION ERUPTED TOOTH/EXR KNEE SURGERY HX Right 2016 ACL reconstruction Current Outpatient Medications Medication Sig peg 3350-Electrolytes (GOLYTELY) 236-22.74-6.74 -5.86 gram suspension Refer to printed prep instructions from your provider. dicyclomine (BENTYL) 20 mg tablet TAKE 1 TABLET BY MOUTH BEFORE MEAL(S) AND AT BEDTIME sertraline (ZOLOFT) 50 mg tablet Take 1 tablet by mouth once daily. No current facility-administered medications for this visit. ALLERGIES: Patient has no known allergies. PERSONAL HISTORY: Social History Tobacco Use Smoking status: Never Smoker Smokeless tobacco: Never Used Substance Use Topics Alcohol use: Yes Alcohol/week: 1.0 standard drink Types: 1 Cans of Beer (12oz) per week Drug use: Never FAMILY HISTORY: FAMILY HISTORY Problem Relation Age of Onset Colon Polyps Mother pre-cancer Colon Polyps Father pre-cancer Colon Cancer Other paternal great grandmother Diabetes Maternal Grandfather REVIEW OF SYMPTOMS: The review of systems data was entered by the nurse and reviewed by me Nursing Notes: Jayla Ahn 02/09/2022 7:22 AM Signed REVIEW OF SYSTEMS: General: The patient denies fatigue, denies weight loss, NOTES weight gain, denies feeling hot, and denies feelings of cold. Eyes: The patient denies glaucoma, denies eye injury/surgery, does not wear glasses or contacts. Ear/Nose/Throat: The patient NOTES allergies, denies hayfever, denies ear infections, and denies bloody noses. Cardiovascular: The patient denies chest pain, denies heart disease, denies high blood pressure,denies cardiac stent, denies prior heart attack, denies irregular heart beat, denies high cholesterol, denies poor circulation, denies heart failure, other cardiac issues, denies claudication, denies cold feet, denies peripheral arterial stent. Respiratory: The patient denies tuberculosis, denies pneumonia, denies frequent cough, denies pulmonary embolism, denies shortness of breath, and denies coughing up blood. Gastrointestinal: The patient denies difficulty swallowing, NOTES acid reflux, denies ulcers, denies vomiting, denies jaundice/hepatitis, denies gallbladder problems, denies black or tarry stools, denies hemorrhoids, denies bleeding from rectum, denies diverticulitis, NOTES constipation, NOTES diarrhea, denies loss of stool control, and denies hernias. Kidney/Bladder: The patient denies kidney stones, denies urine infections, and denies bloody urine. Skin: The patient denies a history of skin cancer, denies bleeding/changing moles, and denies a history of skin rash. Neurologic: The patient denies a history of epilepsy/convulsions, NOTES headaches, denies head/spinal injuries, and denies stroke/TIA. Psychiatric: The patient denies psychiatric medications, NOTES depression, and denies voices, denies substance abuse. Endocrine: The patient denies thyroid disorders, denies diabetes, and denies hormonal problems. Hematologic: The patient denies a history of bruising, denies bleeding, and denies anemia, denies blood clots. Infections: The patient denies a history of measles and mumps, denies rheumatic fever, and denies sexually transmitted diseases. Musculoskeletal: The patient denies back pain/injury, denies back problems, denies sciatica, denies knee/foot trouble, denies arthritis, or denies gout. When was patient's last Mammogram screening? N/A Last Colonoscopy: None Jayla Ahn PHYSICAL EXAMINATION: General: The patient is 26 year old female, well nourished, well hydrated in no acute distress. The patient is oriented to time, place, and person. VITALS: Blood pressure 146/84, pulse 106, temperature 36.3 C (97.3 F), height 165.1 cm (5' 5 ), weight 85.3 kg (188 lb), last menstrual period 02/04/2021, SpO2 95 %. Body mass index is 31.28 kg/m . HEENT: Normal cephalic, ataumatic, pupils are equally round, sclera are anicteric, mucous membranes are moist, oropharynx is clear. Neck has no masses, asymmetry or lymphadenopathy. Thyroid is unremarkable. Respiratory: Clear to auscultation and percussion. Normal respiratory excursion and pattern. Cardiac: Examination is regular rate and rhythm. Abdominal exam: Soft, nontender, with no palpable masses. No hepatosplenomegaly. No palpable hernias. Rectal exam: exam deferred Extremities: no clubbing, cyanosis or edema. No adenopathy. Other: LABORATORY VALUES: As Noted RADIOLOGIC STUDIES: As Noted Assessment IMPRESSION: [place] cramping, alternating constipation diarrhea, likely IBS, rule out other etiologies PLAN: I plan to perform upper and lower endoscopy. We discussed the risks and benefits of the planned endoscopy. I have informed the patient that complications can occur including failure to complete the endoscopy and perforation. The patient had the opportunity to ask questions concerning the planned endoscopy. My staff has also explained the procedure to the patient in understandable terms and has given the patient printed material concerning the procedure. The patient freely consents to surgery. I plan to use golytely bowel preparation for endoscopy I plan for monitored anesthetic care. Diagnoses: (R19.7) Diarrhea, unspecified type (primary encounter diagnosis) (R10.9) Cramp, abdominal A letter was sent to Dr. Adelaide Mcdaniel MD indicating the above finding for this patient. Return to Clinic: The patient is instructed to follow-up with me after the testing has been completed. Michael Lovell MD documented in this encounter [facility] 02-09-2022 Instructions Michael Lovell MD - 02/09/2022 7:54 AM EDT Images from the original note were not included. Bowel Preparation Instructions for: Golytely, Nulytely, Trilyte or Colyte (polyethylene glycol 3350 and electrolytes) IF YOU DO NOT FOLLOW THESE DIRECTIONS, YOUR COLONOSCOPY WILL BE CANCELLED. Barrett Instructions: Your bowel must be empty so that your doctor can clearly view your colon. Follow all of the instructions in this handout EXACTLY as they are written. Do NOT eat any solid food the ENTIRE day before your colonoscopy. Drink only clear liquids. Buy your bowel preparation at least 5 days before your colonoscopy. TRANSPORTATION on the Day of Your Exam A responsible person MUST be present with you at Check In prior to your colonoscopy and REMAIN in the endoscopy area until you are discharged. You are NOT ALLOWED to drive, take a taxi or bus, or leave the Endoscopy Center ALONE. If you do not have a responsible refrigerated national truck driver (family member or friend) with you to take you home, your exam cannot be done with sedation and will be cancelled. Please bring a list of all of your current medications, including any Over-the Counter medications with you. Medications If you take insulin, diabetic medications or blood thinners such as Coumadin (warfarin), Plavix (clopidogrel), Ticlid (ticlopidine hydrochloride), Agrylin (anagrelide), Xarelto (Rivaroxaban), Pradaxa (Dabigatran), Eliquis (Apixaban), and Effient (Prasugrel). You MUST call the doctors who orders those medicines for instructions on altering the dosage before your colonoscopy. All other medications should be taken the day of the exam with a sip of water including ASPIRIN. Five (5) Days Before Your Colonoscopy Do NOT take medicines that stop diarrhea - such as Imodium, Kaopectate, or Pepto Bismol. Do NOT take fiber supplements - such as Metamucil, Citrucel, or Perdiem. Do NOT take products that contain iron - such as multi-vitamins (the label lists what is in the products). Do NOT take Vitamin E. Buy the prescription bowel preparation solution at your local pharmacy or drugstore pharmacy. 09/2019 Bowel Preparation Instructions for: Golytely, Nulytely, Trilyte or Colyte (polyethylene glycol 3350 and electrolytes) Three (3) Days Before Your Colonoscopy Do NOT eat high-fiber foods - such as popcorn, beans, seeds (flax, sunflower, quinoa), multigrain bread, nuts, salad/vegetables, or fresh and dried fruit. One (1) Day Before Your Colonoscopy Only drink clear liquids the ENTIRE DAY before your colonoscopy. Do NOT eat any solid foods. Drink at least 8 ounces of clear liquids every hour after waking up. The clear liquids you can drink include: Clear Liquid (NO RED LIQUIDS) DO NOT DRINK Gatorade, Pedialyte or Powerade Clear broth or bouillon Coffee or tea (no milk or non-dairy creamer) Carbonated and non-carbonated soft drinks Cholo-Aid or other fruit flavored drinks Strained fruit juices (no pulp) Jell-O, popsicles, hard candy Water Alcohol Milk or non-dairy creamers Noodles or vegetables in soup Juice with pulp Liquid you cannot see through The bowel preparation solution will be consumed in two parts. Mix the solution the evening before your colonoscopy and refrigerate before drinking. You may add the flavor pack that came with the bowel preparation. Do NOT add ice, sugar or any other flavorings to the solution. Part 1 At 6:00 PM - Evening before your colonoscopy Drink an 8-oz glass of bowel preparation every 10 minutes for a total of 8 glasses. You may continue to drink clear liquids until midnight. Part 2 On the day of your colonoscopy you may drink clear liquids up to (three) 3 hours before your procedure. 4 1/2 hours before your colonoscopy Drink an 8-oz glass of bowel preparation every 10 minutes for a total of 8 glasses. Fifteen (15) minutes later, drink an 8-oz glass of clear liquids every 15 minutes for a total of 2 glasses. You may continue to drink clear liquids up to (three) 3 hours before your exam. 3 09/2019 documented in this encounter [facility] 02-09-2022 Nurse Note REVIEW OF SYSTEMS: General: The patient denies fatigue, denies weight loss, NOTES weight gain, denies feeling hot, and denies feelings of cold. Eyes: The patient denies glaucoma, denies eye injury/surgery, does not wear glasses or contacts. Ear/Nose/Throat: The patient NOTES allergies, denies hayfever, denies ear infections, and denies bloody noses. Cardiovascular: The patient denies chest pain, denies heart disease, denies high blood pressure,denies cardiac stent, denies prior heart attack, denies irregular heart beat, denies high cholesterol, denies poor circulation, denies heart failure, other cardiac issues, denies claudication, denies cold feet, denies peripheral arterial stent. Respiratory: The patient denies tuberculosis, denies pneumonia, denies frequent cough, denies pulmonary embolism, denies shortness of breath, and denies coughing up blood. Gastrointestinal: The patient denies difficulty swallowing, NOTES acid reflux, denies ulcers, denies vomiting, denies jaundice/hepatitis, denies gallbladder problems, denies black or tarry stools, denies hemorrhoids, denies bleeding from rectum, denies diverticulitis, NOTES constipation, NOTES diarrhea, denies loss of stool control, and denies hernias. Kidney/Bladder: The patient denies kidney stones, denies urine infections, and denies bloody urine. Skin: The patient denies a history of skin cancer, denies bleeding/changing moles, and denies a history of skin rash. Neurologic: The patient denies a history of epilepsy/convulsions, NOTES headaches, denies head/spinal injuries, and denies stroke/TIA. Psychiatric: The patient denies psychiatric medications, NOTES depression, and denies voices, denies substance abuse. Endocrine: The patient denies thyroid disorders, denies diabetes, and denies hormonal problems. Hematologic: The patient denies a history of bruising, denies bleeding, and denies anemia, denies blood clots. Infections: The patient denies a history of measles and mumps, denies rheumatic fever, and denies sexually transmitted diseases. Musculoskeletal: The patient denies back pain/injury, denies back problems, denies sciatica, denies knee/foot trouble, denies arthritis, or denies gout. When was patient's last Mammogram screening? N/A Last Colonoscopy: None Jayla Ahn documented in this encounter [facility] documented [facility] [place] [facility]* Diagnosis Family history of colonic polyps- Primary Diarrhea, unspecified type Cramp, abdominal Abdominal pain, unspecified site documented in this [facility] [place] [facility]* Diagnosis Diarrhea, unspecified type- Primary Cramp, abdominal Abdominal pain, unspecified site documented [facility] [place] [facility]* Diagnosis First trimester screening- Primary Other specified screening Encounter for (NT) nuchal translucency scan Other specified screening 12 weeks gestation of state, incidental documented in this encounter [facility] note* Diagnosis 12 weeks gestation of - Primary state, incidental Encounter for supervision of normal first in first trimester Supervision of normal first documented in this encounter [facility] note* Diagnosis 16 weeks gestation of - Primary state, incidental Encounter for supervision of normal first in second trimester Supervision of normal first documented in this encounter [facility] note* Diagnosis Encounter for anatomic survey- Primary Obesity affecting in third trimester, unspecified obesity type 19 weeks gestation of state, incidental documented in this encounter [facility] note* Diagnosis Encounter for supervision of normal first in second trimester- Primary Supervision of normal first 20 weeks gestation of state, incidental documented in this encounter [facility] note* Diagnosis Abnormal glucose tolerance test (GTT) during , antepartum- Primary documented in this encounter [facility] note* Diagnosis 28 weeks gestation of - Primary state, incidental Encounter for supervision of normal first in third trimester Supervision of normal first documented in this encounter [facility] note* Diagnosis Obesity in - Primary Obesity complicating , childbirth, or the puerperium, unspecified as to episode of care or not applicable 32 weeks gestation of state, incidental Need for vaccination Need for prophylactic vaccination and inoculation against unspecified single disease documented in this encounter [facility] for referral (narrative)* Outpatient Procedure (Routine) - Authorized Specialty Diagnoses / Procedures Referred By Laurie sultana Referred To Contact [facility] Diagnoses Diarrhea, unspecified type Cramp, abdominal Procedures COLONOSCOPY DIAGNOSTIC COLONOSCOPY FLX DX W/COLLJ SPEC WHEN PFRMD Michael Lovell MD [address] [place] [address] [facility] [address] [place] [address] Referral ID Status Reason Start Date Expiration Date Visits Requested Visits Authorized [id number] Authorized Auto-Generat ed Referral 02/09/2022 02/09/2023 1 1 * Outpatient Procedure (Routine) - Pending Review Specialty Diagnoses / Procedures Referred By Laurie sultana Referred To Contact [facility] Diagnoses Diarrhea, unspecified type Cramp, abdominal Procedures EGD DIAGNOSTIC ESOPHAGOGASTRODUODENOSC OPY TRANSORAL DIAGNOSTIC Michael Lovell MD [address] [place] [address] [address] Referral ID Status Reason Start Date Expiration Date Visits Requested Visits Authorized [id number] Pending Review Auto-Generat ed Referral 02/09/2022 02/09/2023 1 1 [facility] for referral (narrative)* Outpatient Procedure (Routine) - Closed Specialty Diagnoses / Procedures Referred By Laurie sultana Referred To Contact [facility] Diagnoses Diarrhea, unspecified type Cramp, abdominal Procedures COLONOSCOPY DIAGNOSTIC COLONOSCOPY FLX DX W/COLLJ SPEC WHEN Michael Crisostomo MD [address] [facility] [place] [address] [facility] Disease [address] [address] Referral ID Status Reason Start Date Expiration Date V isits Requested Visits Authorized [id number] Closed Auto-Generate d Referral 02/09/2022 02/09/2023 1 1 T [facility] for visit Narrative* Outpatient Procedure (Routine) - Closed Specialty Diagnoses / Procedures Referred By Laurie sultana Referred To Contact [facility] [place] Diagnoses Diarrhea, unspecified type Cramp, abdominal Procedures COLONOSCOPY DIAGNOSTIC COLONOSCOPY FLX DX W/COLLJ SPEC WHEN Michael Crisostomo MD [address] [facility] [place] [address] [address] Referral ID Status Reason Start Date Expiration Date V isits Requested Visits Authorized [id number] Closed Auto-Generate d Referral 02/09/2022 02/09/2023 1 1 [facility] for visit Narrative* Diagnostic Procedure Only (Routine) - Closed Specialty Diagnoses / Procedures Referred By Laurie sultana Referred To Contact [facility] Diagnoses Encounter for supervision of normal first , first trimester Procedures NUCHAL TRANSLUCENCY WHI US NUCHAL TRANSLUCENCY 1ST GESTATION [place], Jax R, MD [address] [facility] [address] [place] [address] Referral ID Status Reason Start Date Expiration Date V isits Requested Visits Authorized [id number] Closed Auto-Generate d Referral 04/03/2023 04/02/2024 1 1 [facility] Diagnostic Procedure Only (Routine) - Closed Specialty Diagnoses / Procedures Referred By Laurie t Referred To Contact [facility] Diagnoses Encounter for supervision of normal first , first trimester Procedures OBSTETRIC ULTRASOUND WHI US PREG UTERUS AFTER 1ST TRIMEST GESTATION Jax Candelaria MD [address] [address] Referral ID Status Reason Start Date Expiration Date V isits Requested Visits Authorized [id number] Closed Auto-Generate d Referral 04/03/2023 04/02/2024 1 1 [facility] Health Concerns Problem Noted Date [facility] - [facility] 03/22 Education - [place] 04/03/2023 Problem Noted Date Diagnosed Date [facility] - [facility] 04/03/2023 Education - [place] 04/03/2023 Problem Noted Date Diagnosed Date [facility] - [facility] 04/03/2023 Education - [place] 04/03/2023 Problem Noted Date Diagnosed Date [facility] - [facility] 04/03/2023 Education - [place] 04/03/2023 Problem Noted Date Diagnosed Date [facility] - [facility] 04/03/2023 Education - [place] 04/03/2023 Summary Purpose Family History No Family History Records FoundNo Family History Records Found Advance Directives No Advanced Directives Records FoundNo Advanced Directives Records Found Additional Source Comments Source Comments (unrecognize d section and content) In the event this informatio n is protected by the Federal Confidentiality of Alcohol and Drug Abuse Patient Records regulations: The Federal rules restrict any use of the information to criminally investigate or prosecute any alcohol or drug abuse patient.[facility] the event this information is protected by the Federal Confidentiality of Alcohol and Drug Abuse Patient Records regulations: The Federal rules restrict any use of the information to criminally investigate or prosecute any alcohol or drug abuse patient.[facility] the event this information is protected by the Federal Confidentiality of Alcohol and Drug Abuse Patient Records regulations: The Federal rules restrict any use of the information to criminally investigate or prosecute any alcohol or drug abuse patient.[facility] the event this information is protected by the Federal Confidentiality of Alcohol and Drug Abuse Patient Records regulations: The Federal rules restrict any use of the information to criminally investigate or prosecute any alcohol or drug abuse patient.[facility] the event this information is protected by the Federal Confidentiality of Alcohol and Drug Abuse Patient Records regulations: The Federal rules restrict any use of the information to criminally investigate or prosecute any alcohol or drug abuse patient.[facility] the event this information is protected by the Federal Confidentiality of Alcohol and Drug Abuse Patient Records regulations: The Federal rules restrict any use of the information to criminally investigate or prosecute any alcohol or drug abuse patient.[facility] the event this information is protected by the Federal Confidentiality of Alcohol and Drug Abuse Patient Records regulations: The Federal rules restrict any use of the information to criminally investigate or prosecute any alcohol or drug abuse patient.[facility] the event this information is protected by the Federal Confidentiality of Alcohol and Drug Abuse Patient Records regulations: The Federal rules restrict any use of the information to criminally investigate or prosecute any alcohol or drug abuse patient.[facility] the event this information is protected by the Federal Confidentiality of Alcohol and Drug Abuse Patient Records regulations: The Federal rules restrict any use of the information to criminally investigate or prosecute any alcohol or drug abuse patient.[facility] the event this information is protected by the Federal Confidentiality of Alcohol and Drug Abuse Patient Records regulations: The Federal rules restrict any use of the information to criminally investigate or prosecute any alcohol or drug abuse patient.[facility] the event this information is protected by the Federal Confidentiality of Alcohol and Drug Abuse Patient Records regulations: The Federal rules restrict any use of the information to criminally investigate or prosecute any alcohol or drug abuse patient.[facility] the event this information is protected by the Federal Confidentiality of Alcohol and Drug Abuse Patient Records regulations: The Federal rules restrict any use of the information to criminally investigate or prosecute any alcohol or drug abuse patient.[facility] the event this information is protected by the Federal Confidentiality of Alcohol and Drug Abuse Patient Records regulations: The Federal rules restrict any use of the information to criminally investigate or prosecute any alcohol or drug abuse patient.[facility] the event this information is protected by the Federal Confidentiality of Alcohol and Drug Abuse Patient Records regulations: The Federal rules restrict any use of the information to criminally investigate or prosecute any alcohol or drug abuse patient.[facility] the event this information is protected by the Federal Confidentiality of Alcohol and Drug Abuse Patient Records regulations: The Federal rules restrict any use of the information to criminally investigate or prosecute any alcohol or drug abuse patient.[facility] Reason for Visit (unrecogniz ed section and content) Reason Comments Patient Question Reason Comments Follow Up Phone Call Reason Comments 07/21 colon/egd bowen Reason Comments Care Reason Comments Results Reason Onset Date Comments Care 09/24/2023 Care Teams (unrecognized sec tion and content) Career Development Director Relationship Specialty Start Date End Date Adelaide Mcdaniel MD [address] [place] [id number] PCP - General Family Medicine 01/03/21 Career Development Director Relationship Specialty Start Date End Date Adelaide Mcdaniel MD [address] [place] [address] PCP - General Family Medicine 01/03/21 Career Development Director Relationship Specialty Start Date End Date Adelaide Mcdaniel MD [address] [place] [address] PCP - General Family Medicine 01/03/21 Career Development Director Relationship Specialty Start Date End Date Adelaide Mcdaniel MD [address] [place] [address] PCP - General Family Medicine 01/03/21 Career Development Director Relationship Specialty Start Date End Date Adelaide Mcdaniel MD [address] [place] [address] PCP - General Family Medicine 01/03/21 Career Development Director Relationship Specialty Start Date End Date Adelaide Mcdaniel MD [address] [place] [address] PCP - General Family Medicine 01/03/21 Career Development Director Relationship Specialty Start Date End Date Adelaide Mcdaniel MD [address] [place] [address] PCP - General Family Medicine 01/03/21 Career Development Director Relationship Specialty Start Date End Date Adelaide Mcdaniel MD [address] [place] [address] PCP - General Family Medicine 01/03/21 Career Development Director Relationship Specialty Start Date End Date Adelaide Mcdaniel MD [address] [place] [address] PCP - General Family Medicine 01/03/21 Career Development Director Relationship Specialty Start Date End Date Adelaide Mcdaniel MD [address] [place] [address] PCP - General Family Medicine 01/03/21 Career Development Director Relationship Specialty Start Date End Date Adelaide Mcdaniel MD [address] [place] [address] PCP - General [facility] 01/03/21 Career Development Director Relationship Specialty Start Date End Date Adelaide Mcdaniel MD [address] [place], [place] [id number] PCP - General [facility] 01/03/21 INFORMATION SOURCE (unrecogn ized section and content) DATE CREATED AUTHOR [facility]2023 [facility] FOR RECORDS PERTAINING TO PATIENTS WHO ARE OR HAVE BEEN ENROLLED IN A CHEMICAL DEPENDENCY/SUBSTANCEABUSE PROGRAM, SOME INFORMATION MAY BE OMITTED. This clinical summary was aggregated from multiple sources. Caution should be exercised in using it in the provision of clinical care. This summary normalizes information from multiple sources, and as a consequence, information in this document may materially change the coding, format and clinical context of patient data. In addition, data may be omitted in some cases. CLINICAL DECISIONS SHOULD BE BASED ON THE PRIMARY CLINICAL RECORDS. [employer] provides no warranty or guarantee of the accuracy or completeness of information in this document.
[2023-10-27 14:14] LABS: ROM Internal Control Test YES-OK TO RESULT pt. (Internal QC)
[2023-10-27 14:15] LABS: ROM Patient Test POSITIVE (Negative); Record Kit Lot#, ROM+ ROMK1374
--- OUTSIDE RECORDS SUMMARY | 2023-10-27 14:28 | XMS RPT_ITS | CCD ---
Author Name Unknown Address [address] [facility] [address] [place] [address] Organization [facility] Care Team Providers Care Chip Tester Name Role Phone Adelaide Mcdaniel MD Primary Care Provider DISTFILIBERTO, ADELAIDE Primary Care [...] 97.52 kg Reshma Miranda MD Work Phone: [facility] 09-24-2023 14:09-0500 Diastolic blood pressure 74 mm[Hg] Reshma Miranda MD Work Phone: [facility] 09-24-2023 14:09-0500 Systolic blood pressure 120 mm[Hg] Reshma Miranda MD Work Phone: [facility] 08-27-2023 07:57-0500 Body weight 95.3 kg Jax Candelaria MD Work Phone: [facility] 08-27-2023 07:57-0500 Diastolic blood pressure 68 mm[Hg] Jax Candelaria MD Work Phone: [facility] 08-27-2023 07:57-0500 Systolic blood pressure 130 mm[Hg] Jax Candelaria MD Work Phone: [facility] 07-02-2023 13:55-0400 Body height 162.6 cm Jax Candelaria MD Work Phone: [facility] 07-02-2023 13:55-0400 Body weight 89.81 kg Jax Candelaria MD Work Phone: [facility] 07-02-2023 13:55-0400 Diastolic blood pressure 62 mm[Hg] Jax Candelaria MD Work Phone: [facility] 07-02-2023 13:55-0400 Systolic blood pressure 114 mm[Hg] Jax Candelaria MD Work Phone: [facility] 06-04-2023 16:29-0400 Body weight 87.09 kg Jax Candelaria MD Work Phone: [facility] 06-04-2023 16:29-0400 Diastolic blood pressure 82 mm[Hg] Jax Candelaria MD Work Phone: [facility] 06-04-2023 16:29-0400 Systolic blood pressure 120 mm[Hg] Jax Candelaria MD Work Phone: [facility] 05-07-2023 16:28-0400 Body weight 85.28 kg Jax Candelaria MD Work Phone: [facility] 05-07-2023 16:28-0400 Diastolic blood pressure 80 mm[Hg] Jax Candelaria MD Work Phone: [facility] 05-07-2023 16:28-0400 Systolic blood pressure 114 mm[Hg] Jax Candelaria MD Work Phone: [facility] 05-02-2023 09:52-0400 Body weight 85.73 kg Dominique Johnson MD Work Phone: [facility] 07-21-2022 09:28-0400 Diastolic blood pressure 77 mm[Hg] Michael Lovell MD Work Phone: [facility] 07-21-2022 09:28-0400 Heart rate 56 /min Michael Lovell MD Work Phone: [facility] 07-21-2022 09:28-0400 Respiratory rate 17 /min Michael Lovell MD Work Phone: [facility] 07-21-2022 09:28-0400 SaO2% (BldA) [Mass fraction] 99 % Michael Lovell MD Work Phone: [facility] 07-21-2022 09:28-0400 Systolic blood pressure 117 mm[Hg] Michael Lovell MD Work Phone: [facility] 07-21-2022 08:56-0400 Body temperature 96.8 [degF] Michael Lovell MD Work Phone: [facility] 07-21-2022 07:10-0400 Body height 165.1 cm Michael Lovell MD Work Phone: [facility] 07-21-2022 07:10-0400 Body weight 85.28 kg Michael Lovell MD Work Phone: [facility] 02-09-2022 07:18-0400 Body height 165.1 cm Michael Lovell MD Work Phone: [facility] 02-09-2022 07:18-0400 Body temperature 97.3 [degF] Michael Lovell MD Work Phone: [facility] 02-09-2022 07:18-0400 Body weight 85.28 kg Michael Lovell MD Work Phone: [facility] 02-09-2022 07:18-0400 Diastolic blood pressure 84 mm[Hg] Michael Lovell MD Work Phone: [facility] 02-09-2022 07:18-0400 Heart rate 106 /min Michael Lovell MD Work Phone: [facility] 02-09-2022 07:18-0400 SaO2% (BldA) [Mass fraction] 95 % Michael Lovell MD Work Phone: [facility] 02-09-2022 07:18-0400 Systolic blood pressure 146 mm[Hg] Michael Lovell MD Work Phone: [facility] Encounters Encounter Date Encounter Type Care Provider Facility Start: 10-19-2023 End: 10-19-2023 ambulatory ARCADIO OWEN Facility:[facility] Start: 10-18-2023 End: 10-18-2023 ambulatory JESSY RAMOS Facility:[facility] Start: 10-12-2023 End: 10-12-2023 ambulatory LINA CAMPOS Facility:[facility] Start: 09-24-2023 End: 09-24-2023 ambulatory RESHMA MIRANDA Facility:[facility] Start: 09-24-2023 End: 09-24-2023 Patient encounter procedure [...] DTaP,Tdap,Td Vaccine (2 - Td or Tdap) [facility] Start: 02-18-2026 PAP TESTING PAP TESTING [facility] Start: 02-19-2024 PAP TESTING PAP TESTING [facility] Start: 08-13-2023 End: 11-12-2023 GEST GLUC PAOLO, 3-HR, 100 GM, FASTING GEST GLUC PAOLO, 3-HR, 100 GM, FASTING Lab Routine Abnormal glucose tolerance test (GTT) during , antepartum Expected: 08/13/2023, Expires: 11/12/2023 [facility] Work Phone: Immunizations Immunization Date Immunization Notes Care Provider Alexis burgos 09-24-2023 respiratory syncytia l virus (RSV) vaccine, bivalent (ABRYSVO) Reshma Miranda MD Work Phone: [facility] 09-24-2023 tetanus toxoid, redu radha diphtheria toxoid, and acellular pertussis vaccine, adsorbed Reshma Miranda MD Work Phone: [facility] 09-11-2020 influenza virus vacc ine, unspecified formulation Jax Candelaria MD Work Phone: [facility] Payers Date Payer Category Payer Private Health Insurance [employer]EKE MACHUCA OAP [id number] 2020-Present [phone] [address] [place] [address] Open Access [id number] 2020 Private Health Insurance [employer] C EVEA OAP [id number] 2020-Present [phone] [address] [place] [address] Open Access [id number] 2020 Private Health Insurance [id number] Social History Date Type Detail Facility Start: 01-03-2021 End: 06-04-2023 Tobacco smoking status NHIS Never smoked tobacco [facility] Start: 01-03-2021 End: 06-04-2023 Tobacco use and exposure Smokeless tobacco non-user [facility] Start: 02-09-2022 End: 08-27-2023 Alcohol intake Current drinker of alcohol (finding) [facility] Start: 02-09-2022 End: 04-03-2023 Alcohol intake [facility] Start: 01-01-2021 History SDOH Alcohol Frequency 3 [facility] Start: 01-01-2021 History SDOH Alcohol Std Drinks 1 [facility] Start: 01-01-2021 History SDOH Social Connections Phone 5 [facility] Start: 01-01-2021 History SDOH Social Connections Get Together 2 [facility] Start: 01-01-2021 History SDOH Social Connections Living 8 [facility] Start: 01-01-2021 Education 17 [facility] Start: 1995 Sex Assigned At Female [facility] Start: 01-30-2022 End: 08-18-2022 Exposure to SARS-CoV-2 (event) Not sure [facility] Start: 02-20-2023 [facility] Start: 01-01-2021 End: 04-03-2023 Social connection and isolation panel [facility] Do you belong to any clubs or organizations such as episcopal groups, unions, fraternal or athletic groups, or school groups? No [facility] Are you now , , , , never or living with a partner? Living with partner [facility] How often to you hav e a drink containing alcohol? 2-4 times a month [facility] How many standard dr inks containing alcohol do you have on a typical day? 1 or 2 [facility] How often do you hav e 6 or more drinks on 1 occasion? Never [facility] How hard is it for y ou to pay for the very basics like food, housing, medical care, and heating Not hard at all [facility] Do you feel stress - tense, restless, nervous, or anxious, or unable to sleep at night because your mind is troubled all the time - these days [OSQ] Only a little [facility] (I/We) worried alessandro er (my/our) food would run out before (I/we) got money to buy more. Never true [facility] Start: 12-31-2020 Gender identity Identifies as female gender (finding) [facility] Start: 12-31-2020 Sexual orientation Heterosexual (fabio ro) [facility] NEGATED: Highlighted rowStart: TATUMF History of tobacco use Passive smoker [facility] Goals Date Patient Goal Desired Activity /State Personal health goal Clinical Notes 02-09-2022 to 09-24-2023 Kanchan Ramesh Ma - 09/24/2023 2:30 PM ESTPrenatal Quick Notes - Reshma Odonnell MD - 09/24/2023 2:26 PM ESTPatient InstructionsIsabela Almonte Ma - 08/27/2023 7:55 AM ESTPatient Instructions Note Date & Type Note Facility 09-24-2023 Note HNO ID: [id number] Author: Kanchan Ramesh Ma Service: ? Author [...] severely ill: Yes Patient denies history of Guillain-Dayton Syndrome (a severe paralytic illness): Yes Tdap Adacel injection was given without incident. See immunizations for details of immunizations administered today. VIS sheet provided: Yes Provider Dr Miranda was present in office at time of injection. Kanchan Ramesh Ma [facility] 09-24-2023 History of Present illness Narrative Patient [...] severely ill: Yes Patient denies history of Guillain-Dayton Syndrome (a severe paralytic illness): Yes Tdap Adacel injection was given without incident. See immunizations for details of immunizations administered today. VIS sheet provided: Yes Provider Dr Miranda was present in office at time of injection. Kanchan Ramesh Ma documented in this encounter [facility] 09-24-2023 Miscellaneous Notes DM- [place]- [facility] to deliver at [facility]. Pt doing well today. Denies Vaginal Bleeding, Leaking fluid, or contractions. Pt reports good movement. Failed 1hr passed 3hr hr. Never started ASA. RSV and tdap vaccine today. RTO 2 wk. Kick counts reviewed. Reshma Esaon MD documented in this encounter [facility] 09-24-2023 Instructions Wendy Lee Ma - 09/24/2023 2:08 PM EST SEQUENTIAL SCREENINGS The [facility] offers sequential screenings for women who are [...] It will require an appointment with our medical supply technician. This is not an ultrasound performed [...] the above symptoms, contact our office at [phone] and ask to speak with a nurse. After hours, you can call doctors registry at [phone] OR call [facility] at [phone] and ask to have the doctor nutrition services assistant paged. If you consider this an emergency, dial 9--6 or go to your nearest emergency department. NEED HELP? Are you dealing with a violent or abusive relationship? Are you a victim of rape or sexual assult? Call [facility] 24 hour Crisis Hotline: 342.720.9824 or 155-915-4415. MANUAL Your Guide to a Healthy manual is now on-line. Visit [email or web address] ncyGuide to download your free copy documented in this encounter [facility] 08-27-2023 Miscellaneous Notes W/O complaint, No LOF, No Ctx's, No Vag bleed. Harlan Canedlaria MD documented in this encounter [facility] 08-27-2023 Nurse Note Movement? Active baby Vaginal Bleeding: NO Vaginal fluid leakage of fluid: NO Contractions: no contractions documented in this encounter [facility] 08-13-2023 Miscellaneous Notes Patient called and aware of 3 hour. Phone number given Lubna Khoury LPN Please call patient. Recent 1 hour returns at 137, order for 3-hour OGTT is now placed. documented in this encounter [facility] 07-02-2023 Miscellaneous Notes Next - 1 hour, W/O complaint, No LOF, No Ctx's, No Vag bleed. Harlan Candelaria MD documented in this encounter [facility] 07-02-2023 Nurse Note Movement? No movement Vaginal Bleeding: NO Vaginal fluid leakage of fluid: NO Contractions: no contractions documented in this encounter [facility] 06-25-2023 Note HNO ID: [id number] Author: Ghazala Cullen MD Service: ? Author Type: Physician Type: Progress Notes Filed: 06/25/2023 8:12 AM Note Text: Patient here for routine anatomy scan. See ultrasound report for details. OBGYN [facility] 06-25-2023 History of Present illness Narrative Patient here for routine anatomy scan. See ultrasound report for details. OBGYN [facility] documented in this encounter [facility] 06-04-2023 Miscellaneous Notes Declines NIPT, W/O complaint, No LOF, No Ctx's, No Vag bleed. Harlan Candelaria MD documented in this encounter [facility] 06-04-2023 Nurse Note Movement? Too early Vaginal Bleeding: NO Vaginal fluid leakage of fluid: NO Contractions: no contractions documented in this encounter [facility] 05-07-2023 Miscellaneous Notes W/O complaint, No LOF, No Ctx's, No Vag bleed. Harlan Candelaria MD documented in this encounter [facility] 05-07-2023 Nurse Note Movement? Too early Vaginal Bleeding: NO Vaginal fluid leakage of fluid: NO Contractions: no contractions documented in this encounter [facility] 05-03-2023 Note HNO ID: [id number] Author: Dominique Johnson MD Service: ? Author Type: Physician Type: Progress Notes Filed: 05/03/2023 1:29 PM Note Text: Patient here for First Trimester Screening. See ultrasound report for details. Options for genetic screening and diagnosis discussed with the patient. Patient opts for fNIPT. Limitations of screening tests discussed with the patient. Dominique Johnson MD [facility] 05-03-2023 History of Present illness Narrative Patient here for First Trimester Screening. See ultrasound report for details. Options for genetic screening and diagnosis discussed with the patient. Patient opts for fNIPT. Limitations of screening tests discussed with the patient. Dominique Johnson MD documented in this encounter [facility] 04-03-2023 Note HNO ID: [id number] Author: Jax Candelaria MD Service: ? Author [...] weeks or sooner prn. Jax Candelaria MD [facility] 08-18-2022 History of Present illness Narrative FOLLOW UP VISIT - ENDOSCOPY NAME: Veronica Harrison [facility] NO.: [id number] DATE OF SERVICE: 08/18/2022 : 1995 REFERRING [...] Michael Lovell MD documented in this encounter [facility] 08-07-2022 Miscellaneous Notes Per the request of Dr. Lovell called patient to set up follow up appt after her colonoscopy 07/21 documented in this encounter [facility] 07-21-2022 Nurse Note Other: at bedside talking with pt, pt passing flatus. VSS documented in this encounter [facility] 07-21-2022 History and physical note UPDATED PROCEDURAL [...] me today at the request of Dr. Adelaied Mcdaniel MD for my opinion and advice [...] entered by the nurse and reviewed by [place] Nursing Notes: Jayla Ahn 02/09/2022 7:22 AM [...] entered by the nurse and reviewed by [place] Nursing Notes: Jayla Ahn 02/09/2022 7:22 AM [...] Noted RADIOLOGIC STUDIES: As Noted Assessment IMPRESSION: [place] cramping, alternating constipation diarrhea, likely IBS, rule [...] Michael Lovell MD documented in this encounter [facility] 07-20-2022 Miscellaneous Notes [place] in [place] and [place] in [place] with [facility]. Patient had PSS cancel EGD [...] is still scheduled. documented in this encounter [facility] 05-03-2022 Miscellaneous Notes Patient called back and denied sooner procedure date of 05/19. Per patient will stick with 07/21 date Joan Madera 1st attempt to reach patient to accept sooner procedure date 05/19 [place] to call me directly ~ 05/03 1st attempt to reach patient to accept sooner procedure date. [place] to call me directly AT [phone] Joan Madera 08-14-2022 COLON EGD BOWEN documented in this encounter [facility] 02-09-2022 History of Present illness Narrative Patient [...] Noted RADIOLOGIC STUDIES: As Noted Assessment IMPRESSION: [place] cramping, alternating constipation diarrhea, likely IBS, rule [...] Michael Lovell MD documented in this encounter [facility] 02-09-2022 Instructions Michael Lovell MD - 02/09/2022 [...] If you do not have a responsible class c truck driver (family member or friend) with [...] exam. 3 09/2019 documented in this encounter [facility] 02-09-2022 Nurse Note REVIEW OF SYSTEMS: General: [...] None Jayla Ahn documented in this encounter [facility]* Diagnosis Family history of colonic polyps- Primary Diarrhea, unspecified type Cramp, abdominal Abdominal pain, unspecified site [facility]* Diagnosis Diarrhea, unspecified type- Primary Cramp, abdominal Abdominal pain, unspecified site [facility]* Diagnosis First trimester screening- Primary Other specified screening Encounter for (NT) nuchal translucency scan Other specified screening 12 weeks gestation of state, incidental documented in this encounter [facility] note* Diagnosis 12 weeks gestation of - Primary state, incidental Encounter for supervision of normal first in first trimester Supervision of normal first documented in this encounter [facility] note* Diagnosis 16 weeks gestation of - Primary state, incidental Encounter for supervision of normal first in second trimester Supervision of normal first documented in this encounter [facility] note* Diagnosis Encounter for anatomic survey- Primary Obesity affecting in third trimester, unspecified obesity type 19 weeks gestation of state, incidental documented in this encounter [facility] note* Diagnosis Encounter for supervision of normal first in second trimester- Primary Supervision of normal first 20 weeks gestation of state, incidental documented in this encounter [facility] note* Diagnosis Abnormal glucose tolerance test (GTT) during , antepartum- Primary documented in this encounter [facility] note* Diagnosis 28 weeks gestation of - Primary state, incidental Encounter for supervision of normal first in third trimester Supervision of normal first documented in this encounter [facility] note* Diagnosis Obesity in - Primary Obesity complicating , childbirth, or the puerperium, unspecified as to episode of care or not applicable 32 weeks gestation of state, incidental Need for vaccination Need for prophylactic vaccination and inoculation against unspecified single disease documented in this encounter [facility] for referral (narrative)* Outpatient Procedure (Routine) - Authorized Specialty Diagnoses / Procedures Referred By Laurie sultana Referred To Contact [facility] Diagnoses Diarrhea, unspecified type Cramp, abdominal Procedures COLONOSCOPY DIAGNOSTIC COLONOSCOPY FLX DX W/COLLJ SPEC WHEN PFRMD Michael Lovell MD [address] [place] [address] [facility] [address] [place] [address] Referral ID Status Reason Start Date Expiration Date Visits Requested Visits Authorized [id number] Authorized Auto-Generat ed Referral 02/09/2022 02/09/2023 1 1 * Outpatient Procedure (Routine) - Pending Review Specialty Diagnoses / Procedures Referred By Laurie sultana Referred To Contact [facility] Diagnoses Diarrhea, unspecified type Cramp, abdominal Procedures EGD DIAGNOSTIC ESOPHAGOGASTRODUODENOSC OPY TRANSORAL DIAGNOSTIC Michael Lovell MD [address] [place] [address] [address] Referral ID Status Reason Start Date Expiration Date Visits Requested Visits Authorized [id number] Pending Review Auto-Generat ed Referral 02/09/2022 02/09/2023 1 1 [facility] for referral (narrative)* Outpatient Procedure (Routine) - Closed Specialty Diagnoses / Procedures Referred By Laurie sultana Referred To Contact [facility] Diagnoses Diarrhea, unspecified type Cramp, abdominal Procedures COLONOSCOPY DIAGNOSTIC COLONOSCOPY FLX DX W/COLLJ SPEC WHEN Michael Crisostomo MD [address] [place] [address] [facility] [address] [address] Referral ID Status Reason Start Date Expiration Date V isits Requested Visits Authorized [id number] Closed Auto-Generate d Referral 02/09/2022 02/09/2023 1 1 T [facility] for visit Narrative* Outpatient Procedure (Routine) - Closed Specialty Diagnoses / Procedures Referred By Laurie sultana Referred To Contact [facility] Diagnoses Diarrhea, unspecified type Cramp, abdominal Procedures COLONOSCOPY DIAGNOSTIC COLONOSCOPY FLX DX W/COLLJ SPEC WHEN Michael Crisostomo MD [address] [facility] [place] [place] [address] [address] Referral ID Status Reason Start Date Expiration Date V isits Requested Visits Authorized [id number] Closed Auto-Generate d Referral 02/09/2022 02/09/2023 1 1 [facility] for visit Narrative* Diagnostic Procedure Only (Routine) - Closed Specialty Diagnoses / Procedures Referred By Laurie sultana Referred To Contact [facility] Diagnoses Encounter for supervision of normal first , first trimester Procedures NUCHAL TRANSLUCENCY WHI US NUCHAL TRANSLUCENCY 1ST GESTATION [place], Jax R, MD [address] [address] [facility] [address] [place] [address] Referral ID Status Reason Start Date Expiration Date V isits Requested Visits Authorized [id number] Closed Auto-Generate d Referral 04/03/2023 04/02/2024 1 [facility] Diagnostic Procedure Only (Routine) - Closed Specialty Diagnoses / Procedures Referred By Laurie t Referred To Contact [facility] Diagnoses Encounter for supervision of normal first , first trimester Procedures OBSTETRIC ULTRASOUND WHI US PREG UTERUS AFTER 1ST TRIMEST GESTATION Jax Candelaria MD [address] [address] Referral ID Status Reason Start Date Expiration Date V isits Requested Visits Authorized [id number] Closed Auto-Generate d Referral 04/03/2023 04/02/2024 1 1 [facility] Health Concerns Problem Noted Date [facility] - [facility] 03/22 [place] - [place] 04/03/2023 Problem Noted Date Diagnosed Date [facility] - [facility] 04/03/2023 [place] 04/03/2023 Problem Noted Date Diagnosed Date [facility] - [facility] 04/03/2023 [place] 04/03/2023 Problem Noted Date Diagnosed Date [facility] - [facility] 04/03/2023 [place] 04/03/2023 Problem Noted Date Diagnosed Date [facility] - [facility] 04/03/2023 [place] 04/03/2023 Summary Purpose Family History No Family [...] or prosecute any alcohol or drug abuse patient.[facility] the event this information is protected by the Federal Confidentiality of Alcohol and Drug Abuse Patient Records regulations: The Federal rules restrict any use of the information to criminally investigate or prosecute any alcohol or drug abuse patient.[facility] the event this information is protected by the Federal Confidentiality of Alcohol and Drug Abuse Patient Records regulations: The Federal rules restrict any use of the information to criminally investigate or prosecute any alcohol or drug abuse patient.[facility] the event this information is protected by the Federal Confidentiality of Alcohol and Drug Abuse Patient Records regulations: The Federal rules restrict any use of the information to criminally investigate or prosecute any alcohol or drug abuse patient.[facility] the event this information is protected by the Federal Confidentiality of Alcohol and Drug Abuse Patient Records regulations: The Federal rules restrict any use of the information to criminally investigate or prosecute any alcohol or drug abuse patient.[facility] the event this information is protected by the Federal Confidentiality of Alcohol and Drug Abuse Patient Records regulations: The Federal rules restrict any use of the information to criminally investigate or prosecute any alcohol or drug abuse patient.[facility] [place]imaIn the event this information is protected by the Federal Confidentiality of Alcohol and Drug Abuse Patient Records regulations: The Federal rules restrict any use of the information to criminally investigate or prosecute any alcohol or drug abuse patient.[facility] [place]imaIn the event this information is protected by the Federal Confidentiality of Alcohol and Drug Abuse Patient Records regulations: The Federal rules restrict any use of the information to criminally investigate or prosecute any alcohol or drug abuse patient.[facility] [place]imaIn the event this information is protected by the Federal Confidentiality of Alcohol and Drug Abuse Patient Records regulations: The Federal rules restrict any use of the information to criminally investigate or prosecute any alcohol or drug abuse patient.[facility] [place]imaIn the event this information is protected by the Federal Confidentiality of Alcohol and Drug Abuse Patient Records regulations: The Federal rules restrict any use of the information to criminally investigate or prosecute any alcohol or drug abuse patient.[facility] [place]imaIn the event this information is protected by the Federal Confidentiality of Alcohol and Drug Abuse Patient Records regulations: The Federal rules restrict any use of the information to criminally investigate or prosecute any alcohol or drug abuse patient.[facility] [place]imaIn the event this information is protected by the Federal Confidentiality of Alcohol and Drug Abuse Patient Records regulations: The Federal rules restrict any use of the information to criminally investigate or prosecute any alcohol or drug abuse patient.[facility] [place]imaIn the event this information is protected by the Federal Confidentiality of Alcohol and Drug Abuse Patient Records regulations: The Federal rules restrict any use of the information to criminally investigate or prosecute any alcohol or drug abuse patient.[facility] [place]imaIn the event this information is protected by the Federal Confidentiality of Alcohol and Drug Abuse Patient Records regulations: The Federal rules restrict any use of the information to criminally investigate or prosecute any alcohol or drug abuse patient.[facility] [place]imaIn the event this information is protected by the Federal Confidentiality of Alcohol and Drug Abuse Patient Records regulations: The Federal rules restrict any use of the information to criminally investigate or prosecute any alcohol or drug abuse patient.[facility] [place] Reason for Visit (unrecogniz ed section and content) Reason Comments Patient Question Reason Comments Follow Up Phone Call Reason Comments 07/21 colon/egd bowen Reason Comments Care Reason Comments Results Reason Onset Date Comments Care 09/24/2023 Care Teams (unrecognized sec tion and content) Chip Tester Relationship Specialty Start Date End Date Adelaide Mcdaniel MD [address] [place] [id number] PCP - General Family Medicine 01/03/21 Chip Tester Relationship Specialty Start Date End Date Adelaide Mcdaniel MD [address] [place] [address] PCP - General Family Medicine 01/03/21 Chip Tester Relationship Specialty Start Date End Date Adelaide Mcdaniel MD [address] [place] [address] PCP - General Family Medicine 01/03/21 Chip Tester Relationship Specialty Start Date End Date Adelaide Mcdaniel MD [address] [place] [address] PCP - General Family Medicine 01/03/21 Chip Tester Relationship Specialty Start Date End Date Adelaide Mcdaniel MD [address] [place] [address] PCP - General Family Medicine 01/03/21 Chip Tester Relationship Specialty Start Date End Date Adelaide Mcdaniel MD [address] [place] [address] PCP - General Family Medicine 01/03/21 Chip Tester Relationship Specialty Start Date End Date Adelaide Mcdaniel MD [address] [place] [address] PCP - General Family Medicine 01/03/21 Chip Tester Relationship Specialty Start Date End Date Adelaide Mcdaniel MD [address] [place] [address] PCP - General Family Medicine 01/03/21 Chip Tester Relationship Specialty Start Date End Date Adelaide Mcdaniel MD [address] [place] [address] PCP - General Family Medicine 01/03/21 Chip Tester Relationship Specialty Start Date End Date Adelaide Mcdainel MD [address] [place] [address] PCP - General Family Medicine 01/03/21 Chip Tester Relationship Specialty Start Date End Date Adelaide Mcdaniel MD [address] [place] [address] PCP - General [facility] 01/03/21 Chip Tester Relationship Specialty Start Date End Date Adelaide Mcdaniel MD [address] [place], [place] [id number] PCP - General Family [facility] 01/03/21 INFORMATION SOURCE (unrecogn ized section and content) DATE CREATED AUTHOR [facility] 10/27/2023 [facility] FOR RECORDS PERTAINING TO PATIENTS WHO ARE [...] BE BASED ON THE PRIMARY CLINICAL RECORDS. [employer] provides no warranty or guarantee of the accuracy or completeness of information in this document.
[2023-10-27 14:50] LABS: Absolute Neutrophil Count 10.5 X10^3/uL (2.0-7.7); Basophil# 0.06 X10^3/uL; Basophil% 0.4 % (0-1); Eosinophil# 0.05 X10^3/uL; Eosinophils% 0.3 % (0-5); Hematocrit 36.9 % (37-47); Lymphocyte % 15.8 % (19-41); Mean Corp Hgb Conc 32.5 g/dL (32-36); Mean Platelet Vol. 9.7 fl (6.2-12.0); Monocyte# 1.32 X10^3/uL; Monocyte% 9.1 % (0-10); NRBC Flagged by Analyzer 0 % (0-5); Neutrophil # 10.47 X10^3/uL (2.7-7.7); Neutrophil % 72.1 % (47-70); Platelet Count 249 K/mm3 (150-450); RBC Distribution Width CV 14.1 % (11.6-14.6); RBC Distribution Width SD 43.5 fl (35.1-43.9); Red Blood Count 4.29 M/mm3 (4.2-5.4); White Blood Count 14.5 K/mm3 (4.4-11.0)
[2023-10-27] MEDS: LACTATED RINGERS 500 ML 999 ML IV (16:14)
[2023-10-27] MEDS: Lactated Ringers 1,000 ML 200 ML IV ×2 (16:14→21:12)
--- NOTE | 2023-10-27 16:49 | PCM.HP.OB ---
HPI - General General Date of Admission: 10/27/23 HPI Narrative DAVID LUGO, is a 28 F at 37.4 weeks gestation who presents with leaking of clear fluid. Stated felt water break earlier this afternoon. Positive movement. Has been having contractions for the past couple of days. Patient was a late transfer of care from [place]. EFW 86 %, AC >99% at 36 weeks. Maternal Data Information JOJO Calculator Estimated Delivery Date Method Current WG Current Estimate 11/13/23 Manual 37w 4d PFSH PFSH Medical History (Updated 10/27/23 @ 16:57 by Polly Dunn CNM) Anxiety Depression Home Medications vit no.95-ferrous fumarate 28 mg-folic acid 800 mcg tablet () 1 tab PO DAILY 10/27/23 [History Last Taken 10/26/23 08:00] Allergy/AdvReac Type Severity Reaction Status Date / Time No Known Allergies Allergy Verified 10/27/23 14:00 Surgical History (Updated 10/27/23 @ 14:26 by Niya Connor) History of surgery Social History Smoking Status: Never smoker History Elective abortions Hx Para 0 Spontaneous abortions Hx # Term Pregnancies Ectopic pregnancies Hx # Pregnancies Multiple births # of living children ROS Eyes Eyes: Denies blurry vision, change in vision or spots in vision ENT HEENT: Denies dizziness or headache(s) Cardiovascular Cardiovascular: Denies abdominal pain, chest pain or dyspnea Respiratory/Chest Respiratory/Chest: Denies cough, dyspnea, shortness of breath at rest or shortness of breath with exertion Gastrointestinal Gastrointestinal: Denies abdominal pain, diarrhea or vomiting Genitourinary Genitourinary: Denies change in urinary stream, difficulty urinating or dysuria Musculoskeletal Musculoskeletal: Reports none Integumentary Integumentary: Denies rash Neurologic Neurologic: Denies dizziness, headache(s), memory loss or weakness Psychiatric Psychiatric: Reports none Vital Signs Vital Signs Vital Signs: 10/27/23 13:54 10/27/23 13:54 10/27/23 13:54 Temperature Temperature Source Pulse Rate 112 H Blood Pressure 143/81 H BP Systolic 143 BP Diastolic 81 Pulse Ox 97 10/27/23 13:54 10/27/23 13:54 10/27/23 13:54 Temperature 98.2 F Temperature Source Temporal Pulse Rate Blood Pressure BP Systolic BP Diastolic Pulse Ox 98 Weight Weight: 222 lb 10.67 oz Body Mass Index (BMI) 38.2 Physical Exam Const alert, oriented x3 and no apparent distress General Appearance: cooperative Orientation / Consciousness: awake Exam Limitations: no limitations HEENT normocephalic Head and Scalp: normal to inspection Eyes General Eye: normal appearance of both eyes Neck full ROM and no lymphadenopathy Lymph Lymphatic: no lymphadenopathy noted Chest inspection of chest normal Resp normal respiratory effort, normal air movement and clear to auscultation bilaterally Effort and Inspection: able to speak in complete sentences and symmetric chest movement Cardio regular rate and regular rhythm GI normal to inspection, nondistended, normoactive bowel sounds Manual OB Exam: presentation cephalic and dilated 4 Amniotic Fluid: clear amniotic fluid Back/Spine normal ROM Extremity full ROM and no calf tenderness Skin no rashes or lesions noted General Skin Exam: no breakdown Neuro oriented x3 and CN's II-XII intact bilaterally Psych mental status grossly normal and thought process normal Labs Labs Labs: Blood Type A POSITIVE Antibody Screen NEGATIVE Hct 36.9 % (37-47) L Hgb 12.0 g/dL (12.0-15.0) Syphilis Total Ab Pending GBS negative Assessment & Plan (1) 37 weeks gestation of : (2) Nulliparity: (3) Uterine size-date discrepancy: (4) Spontaneous rupture of amniotic membranes: (5) Chronic migraine w/o aura w/o status migrainosus, not intractable: (6) Rubella non-immune status, antepartum: PLAN: Plan ROM plus - POSITIVE CE /-2 Admit to labor and delivery Routine labs Start IV and run fluids per orders GBS negative
[2023-10-27] MEDS: fentaNYL-bupivacaine (epidural) 100 ML BAG EPIDURAL ×2 (17:28→21:30)
[2023-10-27 17:47] LABS: Syphilis Antibodies Non-reactive
[2023-10-27] MEDS: Acetaminophen 500 MG Tablet PO (21:11)
[2023-10-28] VITALS (20 sets, daily range): BP systolic 104–137; BP diastolic 51–88; PULSE 78–112; RESP 16–18; TEMP 36.1–37.1; O2SAT 94–99
[2023-10-28] MEDS: Mag Hydrox/Al Hydrox/Simeth 30 ML UDC PO (00:24)
--- NOTE | 2023-10-28 01:31 | PCM.PN.CNM ---
Subjective Subjective Patient comfortable with epidural. Complete and pushing for 3 hours with minimal movement. +1 station with caput. Objective Data Objective Data Vital Signs: Vital Signs Temp Pulse BP Pulse Ox 98.0 F 87 134/71 H 99 10/28/23 01:06 10/28/23 01:07 10/28/23 01:07 10/27/23 22:17 Weight: 222 lb 10.67 oz Body Mass Index (BMI) 38.2 Intake & Output: Intake and Output for Last 24 Hours 10/26/23 10/27/23 10/28/23 23:59 23:59 23:59 Intake Total 1393.33 / 1393.33 Output Total 200 / 200 Balance 1193.33 / 1193.33 Lab / Micro Data 10/27/23 14:30 Labs: Laboratory Results - last 24 hr 10/27/23 13:45: Vag Amniotic Fld Detect POSITIVE H 10/27/23 14:30: WBC 14.5 H, RBC 4.29, Hgb 12.0, Hct 36.9 L, MCV 86.0, MCH 28.0, MCHC 32.5, RDW Std Deviation 43.5, RDW Coeff of Lu 14.1, Plt Count 249, MPV 9.7, Immature Gran % (Auto) 2.300 H, Neut % (Auto) 72.1 H, Lymph % (Auto) 15.8 L, [place] % (Auto) 9.1, Eos % (Auto) 0.3, Baso % (Auto) 0.4, Absolute Neuts (auto) 10.5 H, Absolute Lymphs (auto) 2.30, Nucleated RBC % 0, Syphilis Total Ab Non-reactive, Blood Type A POSITIVE, Antibody Screen NEGATIVE Assessment & Plan (1) 37 weeks gestation of : (2) Rubella non-immune status, antepartum: (3) Chronic migraine w/o aura w/o status migrainosus, not intractable: (4) Spontaneous rupture of amniotic membranes: (5) Uterine size-date discrepancy: (6) Nulliparity: PLAN: Plan Dr. Christian notified and in route for evaluation
[2023-10-28] MEDS: Sodium Citrate/Citric Acid 30 ML UDC PO (01:37)
--- NOTE | 2023-10-28 01:54 | EX.PCM.OBRPT ---
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 Station was plus 1 out of 5. She had not made any significant descent in the past hour despite adequate pushing efforts. There is moderate caput. The position was ROP. She met arrest of descent and CPD criteria. Risk benefits alternatives to continued pushing versus recommended were reviewed and patient desired to proceed with . The patient was taken to the operating room. She was prepped and draped in the dorsal supine position with a leftward tilt. A Pfannenstiel skin incision was made approximately 2 cm above the symphysis pubis and carried through to underlying layer fascia with the scalpel. The fascia was incised incised in the midline and extended laterally with the Landry scissors. The fascia was dissected off the rectus muscles with blunt and sharp dissection. The rectus muscles were in the midline and the peritoneum was entered bluntly. The peritoneal incision was stretched and the Dejuan O retractor was placed. The uterine incision was made in a low transverse fashion with the scalpel and extended superiorly and inferiorly with blunt dissection. The amniotic membranes were ruptured bluntly and clear amniotic fluid returned. A red Redeker catheter was placed down beside my hand to help break the suction. When the suction was broken the head was brought up and the baby moved to transverse. I was unable to easily bring the head back down to the incision. Therefore I grasped the legs and brought the buttocks down. The buttocks was then delivered and the legs were swept out individually. The baby was turned to back up and the arms were swept out individually and with fundal pressure the head was delivered in a flexed position very easily. The cord was clamped and cut as the was stimulated. Cord clamping was not delayed due to the not being immediately vigorous.. The was handed off to the waiting nursing staff. The placenta was delivered with fundal massage and gentle traction in the standard fashion. The uterus was exteriorized and cleared of all clots and debris. There is an extension of the incision down on the left side. The uterine incision was closed with #1 Vicryl in a running locked fashion. A second layer of the same suture was used in an imbricating fashion to close the extension and obtain hemostasis. The incision was examined and was found to be hemostatic. Some Caridad was placed over the incision. The uterus was placed back into the peritoneal cavity and hemostasis was again confirmed. The rectus muscles were examined and any bleeding was Bovie cauterized. The parietal peritoneum and rectus muscles were closed en bloc with an 0 Vicryl running suture. Some Caridad was placed over the rectus muscles. The rectus fascia was examined and any bleeding was Bovie cauterized and the rectus fascia was closed with #1 PDS suture in a running standard fashion. The subcutaneous tissue was examining and any bleeding was Bovie cauterized. Some Caridad was placed in the subcutaneous tissue. The subcutaneous tissue was reapproximated with 3-0 Vicryl suture. The skin was closed in a subcuticular fashion with 3-0 Monocryl suture. I performed the entire procedure with assistance. All sponge, lap, and needle counts were correct. The patient was taken to her room for recovery in a stable condition. Presentation: Positive for ROP Amniotic Membrane Rupture Type: Spontaneous Amniotic Fluid Description: Clear Placental Delivery Description: Expressed Placenta Disposition: [facility] Cord Vessel Description: 3 Vessels Cord Entanglement: None Cord Gases: ABG and VBG Infant A Gender: Female (8 lb 7 oz) (1 minute): 1 (5 minute): 8 (9 at 10 min) Delayed Cord Clamping: No Complications Complications: none Admit VTE Documentation VTE Present on Admission: Yes VTE Mechan Device Prophylaxis: SCD's VTE Pharm Prophylaxis Ordered: Yes
[2023-10-28] MEDS: Cefazolin 2 GM in 0.9% Normal Saline (100mL Bag) 100 ML IV (02:03)
[2023-10-28] MEDS: Azithromycin 500 MG in Dextrose 5%-Water (250mL Bag) 250 ML 250 MG IV (02:13)
[2023-10-28] MEDS: Oxytocin 15 Units/NS 250ml 15 UNITS/250 ML IV.SOLN 83 UNITS IV (03:15)
[2023-10-28] MEDS: Ketorolac 30 MG/ML Syringe IV ×2 (04:24→10:00)
--- NOTE | 2023-10-28 05:06 | NURSING ---
epidural removed blue tip intact
[2023-10-28] MEDS: Acetaminophen 500 MG Tablet 1000 MG PO ×4 (05:15→23:23)
[2023-10-28] MEDS: Lactated Ringers 1,000 ML 100 ML IV (06:36)
--- NOTE | 2023-10-28 09:51 | PCM.PN.CNM ---
Subjective Subjective Patient seen at bedside. Resting comfortably. Has not been up to ambulate. with assistance. Pain is controlled at this time. Objective Data Objective Data Vital Signs: Vital Signs Temp Pulse Resp BP Pulse Ox O2 Del Method 97 F L 78 18 105/62 98 Room Air 10/28/23 08:15 10/28/23 08:15 10/28/23 08:15 10/28/23 08:15 10/28/23 08:15 10/28/23 08:15 Oxygen Delivery Method Room Air Weight: 222 lb 10.67 oz Body Mass Index (BMI) 38.2 Intake & Output: Intake and Output for Last 24 Hours 10/26/23 10/27/23 10/28/23 23:59 23:59 23:59 Intake Total 1393.33 / 1393.33 1545 / 1545 Output Total 350 / 350 1999 / 1999 Balance 1043.33 / 1043.33 -455 / -455 Lab / Micro Data 10/27/23 14:30 Labs: Laboratory Results - last 24 hr 10/27/23 13:45: Vag Amniotic Fld Detect POSITIVE H 10/27/23 14:30: WBC 14.5 H, RBC 4.29, Hgb 12.0, Hct 36.9 L, MCV 86.0, MCH 28.0, MCHC 32.5, RDW Std Deviation 43.5, RDW Coeff of Lu 14.1, Plt Count 249, MPV 9.7, Immature Gran % (Auto) 2.300 H, Neut % (Auto) 72.1 H, Lymph % (Auto) 15.8 L, [place] % (Auto) 9.1, Eos % (Auto) 0.3, Baso % (Auto) 0.4, Absolute Neuts (auto) 10.5 H, Absolute Lymphs (auto) 2.30, Nucleated RBC % 0, Syphilis Total Ab Non-reactive, Blood Type A POSITIVE, Antibody Screen NEGATIVE ROS Eyes Eyes: Denies blurry vision, change in vision or spots in vision ENT HEENT: Denies dizziness or headache(s) Cardiovascular Cardiovascular: Denies abdominal pain, chest pain or dyspnea Respiratory/Chest Respiratory/Chest: Denies cough, dyspnea, shortness of breath at rest or shortness of breath with exertion Gastrointestinal Gastrointestinal: Denies abdominal pain, diarrhea or vomiting Genitourinary Genitourinary: Denies change in urinary stream, difficulty urinating or dysuria Musculoskeletal Musculoskeletal: Reports none Integumentary Integumentary: Denies rash Neurologic Neurologic: Denies dizziness, headache(s), memory loss or weakness Physical Exam Narrative Dressing is dry and intact Const alert and no apparent distress General Appearance: cooperative and comfortable Exam Limitations: no limitations HEENT normocephalic Eyes General Eye: normal appearance of both eyes Neck full ROM General: normal visual inspection Chest Chest: symmetrical chest wall rise Resp normal respiratory effort and normal air movement Effort and Inspection: symmetric chest movement Auscultation: clear to auscultation bilaterally Cardio regular rate and regular rhythm GI normal to inspection, nondistended, normoactive bowel sounds Back/Spine normal ROM Extremity full ROM and no calf tenderness General Extremity: normal exam except as noted Skin no rashes or lesions noted Neuro CN's II-XII intact bilaterally Psych mental status grossly normal Assessment & Plan (1) Status post primary low transverse section: (2) Care and examination of lactating mother: (3) Rubella non-immune status, antepartum: PLAN: Plan POD 1 Primary C/S Routine care Pain control Dangle at bedside/ stand / ambulate in room today with support
[2023-10-28] MEDS: Senna/Docusate Sodium 1 Tablet PO (10:00)
[2023-10-28] MEDS: Prenatal Vits Tablet 1 TABLET PO (10:00)
[2023-10-28] MEDS: 0.9% Saline Lock 10 ML Syringe IV ×2 (10:01→16:51)
[2023-10-28] MEDS: Enoxaparin 40 MG/0.4 ML Syringe SC (13:38)
[2023-10-28] MEDS: Ibuprofen 600 MG Tablet PO ×2 (17:23→23:23)
[2023-10-29 04:27] LABS: Hematocrit 28.9 % (37-47); Hemoglobin 9.6 g/dL (12.0-15.0); Mean Corp Hgb Conc 33.2 g/dL (32-36); Mean Corpuscular Volume 87.3 fL (81-99); Mean Platelet Vol. 9.6 fl (6.2-12.0); Platelet Count 207 K/mm3 (150-450); RBC Distribution Width CV 14.4 % (11.6-14.6); RBC Distribution Width SD 45.2 fl (35.1-43.9); Red Blood Count 3.31 M/mm3 (4.2-5.4); White Blood Count 17.9 K/mm3 (4.4-11.0)
[2023-10-29] MEDS: Acetaminophen 500 MG Tablet 1000 MG PO ×4 (05:29→23:21)
[2023-10-29] MEDS: Ibuprofen 600 MG Tablet PO ×4 (05:29→23:21)
[2023-10-29 05:40] VITALS: BP 116/68; PULSE 83; RESP 16; TEMP 36.2; O2SAT 97
--- NOTE | 2023-10-29 07:10 | PCM.PN.OB ---
Subjective Subjective Patient seen at bedside. Resting. Ambulated and voiding without difficulty. Pain is controlled with PO medications. with support. Desires to stay another day for support. Denies any headache, vision changes, SOB, or CP. Objective Data Objective Data Vital Signs: Vital Signs Temp Pulse Resp BP Pulse Ox O2 Del Method 97.2 F L 83 16 116/68 97 Room Air 10/29/23 05:40 10/29/23 05:40 10/29/23 05:40 10/29/23 05:40 10/29/23 05:40 10/29/23 05:40 Oxygen Delivery Method Room Air Weight: 222 lb 10.67 oz Body Mass Index (BMI) 38.2 Intake & Output: Intake and Output for Last 24 Hours 10/27/23 10/28/23 10/29/23 23:59 23:59 23:59 Intake Total 1393.33 / 1393.33 1885 / 1885 Output Total 350 / 350 3150 / 3150 250 / 250 Balance 1043.33 / 1043.33 -1265 / -1265 -250 / -250 Lab / Micro Data 10/29/23 04:20 Labs: Laboratory Results - last 24 hr 10/29/23 04:20: WBC 17.9 H, RBC 3.31 L, Hgb 9.6 L, Hct 28.9 L, MCV 87.3, MCH 29.0, MCHC 33.2, RDW Std Deviation 45.2 H, RDW Coeff of Lu 14.4, Plt Count 207, MPV 9.6 ROS Eyes Eyes: Denies blurry vision, change in vision or spots in vision ENT HEENT: Denies dizziness or headache(s) Cardiovascular Cardiovascular: Denies abdominal pain, chest pain or dyspnea Respiratory/Chest Respiratory/Chest: Denies cough, dyspnea, shortness of breath at rest or shortness of breath with exertion Gastrointestinal Gastrointestinal: Denies abdominal pain, diarrhea or vomiting Genitourinary Genitourinary: Denies change in urinary stream, difficulty urinating or dysuria Musculoskeletal Musculoskeletal: Reports none Integumentary Integumentary: Denies rash Neurologic Neurologic: Denies dizziness, headache(s), memory loss or weakness Physical Exam Narrative Dressing is dry and intact Const alert and no apparent distress General Appearance: cooperative and comfortable Exam Limitations: no limitations HEENT normocephalic Eyes General Eye: normal appearance of both eyes Neck full ROM General: normal visual inspection Chest Chest: symmetrical chest wall rise Resp normal respiratory effort and normal air movement Effort and Inspection: symmetric chest movement Auscultation: clear to auscultation bilaterally Cardio regular rate and regular rhythm GI normal to inspection, nondistended, normoactive bowel sounds Back/Spine normal ROM Extremity full ROM and no calf tenderness General Extremity: normal exam except as noted Skin no rashes or lesions noted Neuro CN's II-XII intact bilaterally Psych mental status grossly normal Assessment & Plan (1) Care and examination of lactating mother: (2) Status post primary low transverse section: PLAN: Plan POD 2 Primary C/S Pain control Routine care support Anticipate discharge home tomorrow
[2023-10-29 08:30] VITALS: BP 116/70; PULSE 78; RESP 16; TEMP 36.4; O2SAT 98
[2023-10-29] MEDS: oxyCODONE 5 MG Tablet PO ×2 (08:34→19:43)
[2023-10-29] MEDS: Prenatal Vits Tablet 1 TABLET PO (11:25)
[2023-10-29] MEDS: Senna/Docusate Sodium 1 Tablet PO (11:25)
[2023-10-29 12:00] VITALS: BP 134/81; PULSE 87; RESP 16; TEMP 36.8
--- NOTE | 2023-10-29 15:08 | CASEMGMT ---
Social Work Assessment Labor and Delivery Unit Patient Address:[address] [place] [address] Phone number: [phone] Date of Referral: 10/28/23 Time of Referral:? 1818 Referred By: Lissa Christian Date of Intervention: ??10/29/23 Time of Intervention:? 1320 Reason for Referral: anxiety and depression, had taken zoloft in past Sw completed chart review and acknowledges social work consult due to maternal mental health history for anxiety and depression. Sw presented to bedside and introduced self to mother of baby (DAO Martin). MOB had visitor present, her mother (maternal grandma) and stated it was okay to complete assessment with visitor present. Sw completed psychosocial assessment, asked MOB to complete [place] Depression Scale. History obtained from: medical records, MOB Household composition: Currently residing in the family home is JEY OLIVAS and now baby. Patient's parent/guardian status:? ?MOB states that she and father of baby (MARIZA Dorman) have been together for 6 years. MOB states that they met while working together. [place] baby is first baby for both parents. MOB denies any issues with domestic violence or intimate partner violence. Medical History: ?DEISY is 28 year old female who is 1, para 0- now 1 following labor and delivery of . DEISY received routine care during with [facility]. DEISY delivered baby on 10/28/23 via delivery at 37 weeks gestation. Baby girl, Kortney, was born weighing 8lb 7oz and her apgars were 1 and 8 at one and five minutes of life respectfully. Baby will be followed by Dr. Gann for pediatrics. MOB states that she is breast feeding and this is going well. Educational Status:? Both parents graduated from high school. MOB denies issues with reading, learning or comprehension. Financial Status: Both parents are gainfully employed outside of the home. Both parents work for [employer]. Infant Supplies:?? Parents have obtained all necessary baby supplies, including: car seat, safe sleep space, clothes, diapers, wipes and a breast pump. Childcare/Caregiver(s):?MOB states that when both parents have returned to work they have paternal grandparents to help with childcare. Transportation:?? Both parents have their drivers license and reliable means of transportation. No barriers at this time. Programs/Agencies Involved: ??MOB denies any linkage to community resources at this time. ? Children Services/Legal Issues:?No history of involvement, no issues or concerns warranting a referral to be made at this time. ?? Behavioral Health Issues: ??Mental Health History: MOB states that JEY does not have any clinical mental health diagnoses. MOB states that she has been diagnosed with anxiety and depression. DEISY was formerly prescribed zoloft, but has not taken it for almost two years. MOB states that she is aware of signs and symptoms of baby blues and depression to be on the look out for. MOB completed [place] Depression Scale and her score was a 3. Sw provided education and support. ??? Substance Use History:??MOB denies substance use prior to and during . Family History:?MOB denies family history of addiction/ substance abuse and significant mental health history. ? Drug Screens: No urine screens observed in chart review. ?? Family/Social Stressors:? MOB denies any issues or concerns at this time. Support Systems: MOB states that both sets of grandparents are supportive. Depression/Shaken Baby/Safe Sleeping:? Sw educated MOB on signs and symptoms of baby blues and depression. Sw provided literature for MOB to review. MOB expressed understanding. Sw educated MOB on shaken baby prevention and ABCs of safe sleep. MOB expressed understanding. ASSESSMENT:?MOB and baby admitted following labor and delivery. MOB with mental health history positive for anxiety and depression. MOB educated on signs and symptoms of baby blues and depression/ anxiety. MOB with sufficient supports in place. MOB engaged appropriately during assessment and answered questions openly. MOB appreciative of sw involvement and support, receptive to resources provided. PLAN:? MOB and baby to be discharged when medically ready. ?No other services requested or indicated. Ben Mayer, VERIFY REP, BRANCH CONTROLLER
[2023-10-29] MEDS: Enoxaparin 40 MG/0.4 ML Syringe SC (15:09)
[2023-10-29] MEDS: MEASLES,MUMPS,RUBELLA VACC/PF 0.5 ML SC (15:19)
[2023-10-29 16:00] VITALS: BP 114/69; PULSE 108; RESP 16; TEMP 37.2
[2023-10-29 19:44] VITALS: BP 122/68; PULSE 90; RESP 15; TEMP 36.8; O2SAT 98
[2023-10-30 02:30] VITALS: BP 109/64; PULSE 72; RESP 16; TEMP 36.1; O2SAT 95
[2023-10-30] MEDS: Ibuprofen 600 MG Tablet PO ×2 (05:19→11:10)
[2023-10-30] MEDS: Acetaminophen 500 MG Tablet 1000 MG PO ×2 (05:20→11:10)
[2023-10-30 08:14] VITALS: BP 116/74; PULSE 72; RESP 16; TEMP 36.4
--- NOTE | 2023-10-30 08:42 | DS.PCM_ITS ---
Providers Date of Admission: 10/27/23 Primary Care Physician: Dr. Tari Mcdaniel MD Reason For Visit: C SECTION Diagnosis Discharge Diagnosis (1) Failure of descent in labor, delivered, current hospitalization: Status: Acute Code(s): O62.2 - Other uterine inertia (2) Status post primary low transverse section: Status: Acute Code(s): Z98.891 - History of uterine scar from previous surgery Plan D/c home Medications at Discharge Home Medications vit no.95-ferrous fumarate 28 mg-folic acid 800 mcg tablet () 1 tab PO DAILY 10/27/23 acetaminophen 500 mg tablet 1,000 mg (2 x 500 mg) PO Q6H #0 tabs 10/30/23 ibuprofen 600 mg tablet 600 mg PO Q6H #0 tabs 10/30/23 Hospital Course Operations section Summary of Care Provided Minutes Spent on Discharge: 15 Weight / BMI Weight Weight: 222 lb 10.67 oz Body Mass Index (BMI) 38.2 ABG / Lab / Microbiology Data 10/29/23 04:20 D/C Instructions Discharge Diet: No restrictions Discharge Activity: May Shower May resume sexual activity in: 6 weeks Weight Bearing Status: Weight bearing as tolerated Call your doctor if your incision/area has: Continuous Slow Oozing, Sudden Inc reased Bleeding, Increased Pain/ Swelling, Increased Redness, Foul Smelling Discharge and Swelling at the incision site Call your doctor if you observe: Fever of 101 or Higher, Coldness, Increased Pain, Change in Color, Inability to urinate, Inability to have a bowel movement, Using more than 1 pad per hour, Shortness of breath, Dizziness, Fainting spells, Chest pain, Increased palpitations (irregular heartbeat), Calf discomfort and Uncontrolled pain Suture Line Care: Avoid Pulling/Pushing and Avoid Pinching/Bending Remove Dressing in: 1 week Cleanse incision/area with: Soap & Water Please Follow Up With: Lissa Christian MD When: Follow up in 2 and 6 weeks for visits. Meaningful Use Info Meaningful Use Diagnoses (Choose all that apply): None applicable Discharge Plan Admission Admit Date/Time: 10/27/23 14:15 Primary Reason for Your Visit: section Attending Provider: Lissa Christian Primary Care Provider: Tari Mcdaniel Discharge Orders/Prescriptions Prescriptions: New acetaminophen 500 mg Tablet 1,000 mg PO Q6H Qty: 0 0RF ibuprofen 600 mg Tablet 600 mg PO Q6H Qty: 0 0RF Continued PNV cmb#95-ferrous fumarate-FA [] 28 mg iron- 800 mcg tablet 1 tab PO DAILY Referrals / Follow Up: Tari Mcdaniel MD [Primary Care Provider] - Disposition Disposition (needs filled in before D/C Order can be placed): Home, Self Care
--- NOTE | 2023-10-30 08:42 | PCM.PN.OB ---
Subjective Subjective Pain controlled Objective Data Objective Data Vital Signs: Vital Signs Temp Pulse Resp BP Pulse Ox O2 Del Method 97.5 F L 72 16 116/74 95 Room Air 10/30/23 08:14 10/30/23 08:14 10/30/23 08:14 10/30/23 08:14 10/30/23 02:30 10/30/23 08:14 Oxygen Delivery Method Room Air Weight: 222 lb 10.67 oz Body Mass Index (BMI) 38.2 Intake & Output: Intake and Output for Last 24 Hours 10/28/23 10/29/23 10/30/23 23:59 23:59 23:59 Intake Total 1885 / 1885 Output Total 3150 / 3150 250 / 250 Balance -1265 / -1265 -250 / -250 Lab / Micro Data 10/29/23 04:20 Physical Exam Const alert, oriented x3 and no apparent distress HEENT normocephalic GI soft to palpation, non-tender and non-distended GI Narrative: fundus firm, mid & below umbilicus Incision - bandage c/d/i Extremity normal to inspection and no calf tenderness Assessment & Plan (1) Failure of descent in labor, delivered, current hospitalization: (2) Status post primary low transverse section: PLAN: Plan D/c home
[2023-10-30] MEDS: oxyCODONE 5 MG Tablet PO (09:38)
[2023-10-30] MEDS: Senna/Docusate Sodium 1 Tablet PO (09:39)
[2023-10-30] MEDS: Prenatal Vits Tablet 1 TABLET PO (09:39)
== END 2023-10-30 11:50 | disposition home or self-care (01) | DRG 788 ==
LOC: WP 15:50 → WPOUT 10-30 08:46
PROVIDERS: Advanced Practice Midwife; Admitting Provider Obstetrics & Gynecology; PCP Family Medicine Sports Medicine; Visit Provider Obstetrics & Gynecology
DX: O42.92 Full-term premature rupture of membranes, unspecified as to length of time between rupture and onset of labor (principal); O26.843 Uterine size-date discrepancy, third trimester; Z37.0 Single live birth; O62.2 Other uterine inertia; O33.9 Maternal care for disproportion, unspecified; Z3A.37 37 weeks gestation of pregnancy
CPT/HCPCS: 59025; 59050; 84112; 85025; 85027; 86780; 86850; 86900; 86901; 99221; J7120; A4216; G0378